=== PATIENT | male | born 1965 | race Caucasian/White ===

== ENCOUNTER 2019-07-10 08:03 | Inpatient (IN) | payer BC ==
--- NOTE | 2019-07-10 09:08 | RADIOLOGY REPORT (SQ) ---
EXAM DESCRIPTION: CHEST SINGLE VIEW COMPLETED DATE/TIME: 07/10/2019 8:57 am REASON FOR STUDY: sob COMPARISON: 04/18/2016 EXAM PARAMETERS: NUMBER OF VIEWS: One view. TECHNIQUE: Single frontal radiographic view of the chest acquired. RADIATION DOSE: NA LIMITATIONS: None. FINDINGS: LUNGS AND PLEURA: Chronic volume loss on the left. No evidence of pulmonary edema or pneu monia. MEDIASTINUM AND HILAR STRUCTURES: No masses. Contour normal. HEART AND VASCULAR STRUCTURES: Heart normal in size. Normal vasculature. BONES: No acute findings. HARDWARE: None in the chest. OTHER: No other significant finding. IMPRESSION: NO ACUTE RADIOGRAPHIC FINDING IN THE CHEST. TECHNICAL DOCUMENTATION: JOB ID: [id number] 2010 [employer]- All Rights Reserved Reading location - IP/workstation name: [email or web address]
--- NOTE | 2019-07-10 09:40 | ER Document Report ---
Entered by MUNA SAWYER SCRIBE 07/10/19 0849 Acting as scribe for:EWELINA PACE MD ED Respiratory Problem - General Mode of Arrival: Ambulatory Information source: Patient TRAVEL OUTSIDE OF THE [place] IN LAST 30 DAYS: No <EWELINA PACE - Last Filed: 07/10/19 17:08> <AJIT ALDANA - Last Filed: 07/10/19 22:06> - General Chief Complaint: Respiratory Distress Stated Complaint: TROUBLE BREATHING Time Seen by Provider: 07/10/19 08:39 Notes: This 53-year-old male patient presents to the emergency department today with complaints of a 3-week history of a cough. Patient has been seen by an urgent care multiple times over the past 3 weeks and was prescribed the following medications on the listed dates. 06/23/2019 Tamiflu 75 mg, benzonatate 200mg 06/27/2019 Proair inhaler, prednisone 20 mg, levofloxacin 750 mg 07/01/2019 doxycycline 100 mg Patient states on 06/22 he was diagnosed with influenza A. Patient went back 4 days later on 06/26 and was diagnosed with "double pneumonia". Patient states in the last 3 weeks he has had intermittent fevers but today he is afebrile. Patient denies any nasal congestion, sore throat, or recent travel outside this area. 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 EENT: denies: Nose congestion, Throat pain Cardiovascular: No symptoms reported Respiratory: See HPI, Cough, Short of breath Gastrointestinal: No symptoms reported Genitourinary: No symptoms reported Male Genitourinary: No symptoms reported Musculoskeletal: No symptoms reported Skin: No symptoms reported Hematologic/Lymphatic: No symptoms reported Neurological/Psychological: No symptoms reported -: Yes All other systems reviewed and negative <EWELINA PACE - Last Filed: 07/10/19 17:08> Physical Exam <EWELINA PACE - Last Filed: 07/10/19 17:08> - Vital signs Vitals: Resp BP Pulse Ox 31 H 136/90 H 100 07/10/19 08:09 07/10/19 08:09 07/10/19 08:09 - Notes Notes: Physical Exam: General: Alert, appears short of breath. HEENT: Normocephalic. Atraumatic. PERRL. Extraocular movements intact. Oropharynx clear. Neck: Supple. Non-tender. Respiratory: Hyperventilating, appears short of breath, there is faint wheezing and rhonchi bilaterally with forced cough. Cardiovascular: Regular rate and rhythm. Abdominal: Normal Inspection. Non-tender. No distension. Normal Bowel Sounds. Back: No gross abnormalities. Extremities: Moves all four extremities. Upper extremities: Normal inspection. Normal ROM. Lower extremities: Normal inspection. No edema. Normal ROM. Neurological: Normal cognition. AAOx4. Normal speech. Psychological: Normal affect. Normal Mood. Skin: Warm. Dry. Normal color. (EWELINA PACE) Course - Laboratory Result Diagrams: 07/10/19 09:36 07/10/19 15:57 - Diagnostic Test Radiology reviewed: Image reviewed, Reports reviewed - Chest x-ray does not show any acute findings. There is chronic volume loss on the left compared to previous chest x-rays. - EKG Interpretation by Co EKG shows normal: Sinus rhythm, [place], Intervals, QRS Complexes, ST-T Waves Rate: Normal - 68 Rhythm: NSR - Transfer of Care Care transferred to following provider: Dr. Aldana <EWELINA PACE - Last Filed: 07/10/19 17:08> - Laboratory Result Diagrams: 07/10/19 09:36 07/10/19 15:57 <AJIT ALDANA - Last Filed: 07/10/19 22:06> - Re-evaluation Re-evalutation: 07/10/19 16:39 The patient serum was extremely glycemic and the lab stated they were unable to run the test. They redrew him and it remained extremely lipemic and told me that her composing room supervisor told him they were not allowed to run the lab tests. I eventually spoke with 1 of the pathologists and got her to ask the lab personnel to run the tests that have been ordered so we might be able to eventually make a disposition on this patient. That is the reason why he has now been here for 8 hours and still does not have a disposition or diagnosis. (EWELINA PACE) 07/10/19 22:01 The patient has had respiratory like symptoms for about 3 weeks now. He apparently tested positive for Influenza and then was told he could have pneumonia. The patient has finished a course of Tamiflu, Levaquin, and Doxycycline and he is still sick. CT today shows a consolidation in his left lung base. Patient therefore admitted for further treatment and care. Meropenem started but COVID19 Testing also sent. Patient also has hypertriglyceridemia. ([facility]) - Vital Signs Vital signs: Temp Pulse Resp BP Pulse Ox 97.9 F 92 16 125/93 H 98 07/10/19 08:11 07/10/19 08:11 07/10/19 15:00 07/10/19 10:01 07/10/19 15:00 - Laboratory Laboratory results interpreted by me: 07/10/19 07/10/19 07/10/19 09:36 09:38 11:56 Plt Count 127 L VBG pH 7.43 H Sodium Glucose Triglycerides Cholesterol HDL Cholesterol Urine Glucose (UA) 50 H 07/10/19 15:57 Plt Count VBG pH Sodium 136.7 L Glucose 144 H Triglycerides 4013 H Cholesterol 233.17 H HDL Cholesterol 21 L Urine Glucose (UA) - Transfer of Care Notes: 07/10/19 17:11 Patient is pending CTA chest. (EWELINA PACE) Discharge <EWELINA PACE - Last Filed: 07/10/19 17:08> - Discharge Admitting Provider: Dixie (Hospitalist) Unit Admitted: Medical Floor <[facility] - Last Filed: 07/10/19 22:06> - Discharge Clinical Impression: Hypertriglyceridemia, Chronic cough Dyspnea Qualifiers: Dyspnea type: shortness of breath Qualified Code(s): R06.02 - Shortness of breath Condition: Stable Disposition: ADMITTED INPATIENT I personally performed the services described in the documentation, reviewed and edited the documentation which was dictated to the scribe in my presence, and it accurately records my words and actions.
[2019-07-10 09:58] LABS: ABSOLUTE BASOPHILS # (AUTO) 0.1 10^3/uL (0.0-0.2); ABSOLUTE LYMPHOCYTES (AUTO) 1.4 10^3/uL (0.5-4.7); ABSOLUTE MONOCYTES (AUTO) 0.5 10^3/uL (0.1-1.4); ABSOLUTE NEUT (AUTO) 4.7 10^3/uL (1.7-8.2); BASOPHILS % (AUTO) 1.1 % (0-2); EOSINOPHILS % (AUTO) 0.5 % (0-6); HEMATOCRIT 42.6 % (37.9-51.0); LYMPHOCYTES % (AUTO) 21.2 % (13-45); MEAN CORPUSCULAR VOLUME 87 fl (80-97); MONOCYTES % (AUTO) 8.1 % (3-13); PLATELET COUNT 127 10^3/uL (150-450); RED BLOOD COUNT 4.92 10^6/uL (4.35-5.55); RED CELL DISTRIBUTION WIDTH 13.8 % (11.5-14.0); SEGMENTED NEUTROPHILS % (AUTO) 69.1 % (42-78); TOTAL CELLS COUNTED % (AUTO) 100 %; WHITE BLOOD COUNT 6.8 10^3/uL (4.0-10.5)
[2019-07-10 10:01] LABS: VENOUS BLOOD BASE EXCESS -0.4 mmol/L; VENOUS BLOOD HCO3 23.2 mmol/L (20-32); VENOUS BLOOD PCO2 35.4 mmHg (35-63); VENOUS BLOOD PH 7.43 (7.30-7.42)
[2019-07-10 10:26] LABS: HEMOGLOBIN 14.3 g/dL (13.5-17.0); MEAN CORPUSCULAR HGB CONC 33.5 g/dL (32.0-36.0)
[2019-07-10 10:43] LABS: ERYTHROCYTE SEDIMENTATION RATE 14 mm/hr (0-20)
[2019-07-10] MEDS ORDERED: NORMAL SALINE 1000 ML 1,000 ML IV ONE (11:08)
[2019-07-10 12:12] LABS: APPEARANCE,URINE CLEAR; BILIRUBIN,URINE NEGATIVE (NEGATIVE); COLOR,URINE YELLOW; GLUCOSE, URINE 50 mg/dL (NEGATIVE); KETONES,URINE NEGATIVE (NEGATIVE); LEUKOCYTE ESTERASE,URINE NEGATIVE (NEGATIVE); NITRITE,URINE NEGATIVE (NEGATIVE); PROTEIN,URINE NEGATIVE (NEGATIVE); URINE SPECIFIC GRAVITY 1.019; UROBILINOGEN,URINE NEGATIVE mg/dL (<2.0)
[2019-07-10 12:30] LABS: A TYPE INFLUENZA AG NEGATIVE (NEGATIVE); B INFLUENZA AG NEGATIVE (NEGATIVE)
[2019-07-10] MEDS ORDERED: RINGERS SOLUTION,LACTATED 1,000 ML IV ONE ×2 (13:46→16:58)
--- NOTE | 2019-07-10 15:53 | EKG REPORT ---
SEVERITY:- NORMAL ECG - SINUS RHYTHM : Confirmed by: Rosalva Jane MD 10-Jul-2019 15:52:18
[2019-07-10 16:29] LABS: ALBUMIN 3.5 g/dL (3.5-5.0); ALKALINE PHOSPHATASE 82 U/L (38-126); ANION GAP 6 (5-19); ASPARTATE AMINO TRANSFERASE 25 U/L (17-59); BILIRUBIN,TOTAL 0.4 mg/dL (0.2-1.3); BLOOD UREA NITROGEN 15 mg/dL (7-20); CARBON DIOXIDE 25 mmol/L (22-30); CHLORIDE 106 mmol/L (98-107); CHOLESTEROL 233.17 mg/dL (0-200); CREATINE KINASE 77 U/L (55-170); GLUCOSE 144 mg/dL (75-110); POTASSIUM 4.5 mmol/L (3.6-5.0); TOTAL PROTEIN 6.5 g/dL (6.3-8.2)
[2019-07-10 16:43] LABS: NT PRO BNP < 11 pg/mL (<125)
[2019-07-10 16:44] LABS: TROPONIN I < 0.012 ng/mL
[2019-07-10 16:58] LABS: C-REACTIVE PROTEIN < 5.0 mg/L (<10.0)
[2019-07-10 16:59] LABS: CALCIUM 8.8 mg/dL (8.4-10.2); DIRECT LDL < 30 mg/dL (<100); TRIGLYCERIDES 4013 mg/dL (<150)
--- NOTE | 2019-07-10 18:44 | RADIOLOGY REPORT (SQ) ---
EXAM DESCRIPTION: CTA CHEST COMPLETED DATE/TIME: 07/10/2019 6:18 pm REASON FOR STUDY: Dyspnea, hypertriglyceridemia COMPARISON: None. TECHNIQUE: CT scan of the chest performed using helical scanning technique with dynamic intravenous contrast injection. Images reviewed with lung, soft tissue and bone windows. Reconstructed coronal and sagittal MPR images reviewed. Additional 3 dimensional post-processing performed to develop Maximal Intensity Projection images (NV P). All images stored on PACS. All CT scanners at this facility use dose modulation, iterative reconstruction, and/or weight based d osing when appropriate to reduce radiation dose to as low as reasonably achievable (ALARA). [facility]: Dose Right [facility]: CareDose [facility]: Dose Right [facility]: Teradose 4D [facility]: [employer] CONTRAST TYPE AND DOSE: contrast/concentration: Isovue 350.00 mg/ml; Total Contrast Delivered: 64.0 ml; Total Saline Delivered: 32.4 ml Contrast bolus adequate for pulmonary arteries and aorta. RENAL FUNCTION: BUN 15 creatinine 0.9 RADIATION DOSE: CT Rad equipment meets quality standard of care and radiation dose reduction techniq ues were employed. CTDIvol: 13.2 - 18.2 mGy. DLP: 735 mGy-cm. . LIMITATIONS: None. FINDINGS: LUNGS AND PLEURA: There is opacification in the left base. There are some air bronchogram s. AORTA AND GREAT VESSELS: No aneurysm. No dissection. HEART: No pericardial effusion. No significant coronary artery calcifications. PULMONARY ARTERIES: No emboli visualized in the main pulmonary arteries or the segmental branches. HILAR AND MEDIASTINAL STRUCTURES: No identified masses or abnormal nodes. HARDWARE: None in the chest. UPPER ABDOMEN: No significant findings. Limited exam. THYROID AND OTHER SOFT TISSUES: No masses. No adenopathy. BONES: No acute or significant finding. 3D MIPS: Confirm above findings. OTHER: No other significant finding. IMPRESSION: 1. Airspace disease in the left lower lobe, pneumonia versus atelectasis. 2. There is no aortic aneurysm or dissection. There is no pulmonary embolus. COMMENT: Quality ID # [id number]: Final reports with documentation of one or more dose reduction techniques (e.g., Automated exposure control, adjustment of the mA and/or kV according to patient size, use of iterative reconstruction technique) TECHNICAL DOCUMENTATION: JOB ID: [id number] 2010 [employer]- All Rights Reserved Reading location - IP/workstation name: [email or web address]
[2019-07-10] MEDS ORDERED: MEROPENEM 1 GM VIAL IV ONE (22:07)
[2019-07-10] MEDS ORDERED: ACETAMINOPHEN 325 MG TABLET PO PRN (22:43)
[2019-07-10] MEDS ORDERED: MAG HYDROX/AL HYDROX/SIMETH SUSP 30 ML UDCUP PO PRN (22:43)
[2019-07-10] MEDS ORDERED: MELATONIN 5 MG TABLET PO PRN (22:43)
[2019-07-10] MEDS ORDERED: GUAIFENESIN SYRP 200 MG/10 ML UDC PO PRN (22:43)
[2019-07-10] MEDS ORDERED: MAGNESIUM HYDROXIDE SUSP 30 ML UDCUP PO PRN (22:43)
[2019-07-10] MEDS: ACETYLCYSTEINE 20% SOLN 800 MG/4 ML VIAL.NEB NEB SCH (23:25)
[2019-07-11] MEDS: LEVALBUTEROL HCL NEB 0.63 MG/3 ML AMPUL NEB PRN ×3 (00:07→20:41)
--- NOTE | 2019-07-11 02:59 | PDOC H&P ---
History of Present Illness Admission Date/PCP: 07/10/2019 22:21 No local PCP Patient complains of: Dyspnea History of Present Illness: CHELLE DAWKINS is a 53 year old male who presents the emergency room with a 3- week history of dyspnea. He admits developing constant moderate dyspnea with an associated moderate nonproductive cough and an accompanying episodic subjective fever 3 weeks ago. He was seen on three occasions at a local urgent care center for this problem and was treated initially with Tamiflu having been diagnosed as having influenza A. He was subsequently seen on 2 separate occasions with a diagnosis of pneumonia and treated with Levaquin followed by a course of doxycy haddad when treatment with Levaquin failed. He continues to have dyspnea worsened by exertion, a cough now productive of thick yellow-green mucus and occasional subjective febrile episodes despite treatment, resulting in his emergency room visit today. He denies other associated or accompanying signs and symptoms. He denies prior similar episodes. He has not identified any additional aggravating or ameliorating factors for his dyspnea. In the emergency room he was found to be afebrile with a normal CBC but evidence of a left lower lobe pneumonia on his chest x-ray. He was subsequently admitted to the hospital for further evaluation and treatment. Past Medical History Cardiac Medical History: Reports: Hyperlipidema, Hypertension Denies: Atrial Fibrillation, Congestive Heart Failure, Coronary Artery Disease, DVT, Myocardial Infarction, Pulmonary Embolism Pulmonary Medical History: Denies: Asthma, Chronic Obstructive Pulmonary Disease (COPD) EENT Medical History: Denies: Cataracts, Ears - Hearing aids Neurological Medical History: Denies: Hemorrhagic CVA, Ischemic CVA, Seizures Endocrine Medical History: Denies: Diabetes Mellitus Type 1, Diabetes Mellitus Type 2, Hyperthyroidism, Hypothyroidism, Obesity Renal/ Medical History: Denies: Chronic Kidney Disease, Nephrolithiasis Malignancy Medical History: Reports: None GI Medical History: Reports: Gastroesophageal Reflux Disease Denies: Cirrhosis, Crohn's Disease, Hepatitis, Peptic Ulcer Disease, Ul cerative Colitis Musculoskeltal Medical History: Denies: Arthritis, Gout Skin Medical History: Denies: Eczema, Psoriasis Psychiatric Medical History: Denies: Alcohol Dependency, Substance Abuse, Tobacco Dependency Traumatic Medical History: Reports: None Hematology: Denies: Anemia, Bleeding Tendencies Infectious Medical History: Reports: None Past Surgical History Past Surgical History: Reports: None Social History Information Source: Patient Lives with: Spouse/Significant other Smoking Status: Never Smoker Electronic Cigarette use?: No Frequency of Alcohol Use: None Hx Recreational Drug Use: No Drugs: None Hx Prescription Drug Abuse: No - Advance Directive Resuscitation Status: Full Code Surrogate healthcare decision maker:: Ebony Smith Family History Family History: CAD, Hypertension. denies: DM, Malignancy Parental Family History Reviewed: Yes Children Family History Reviewed: No Sibling(s) Family History Reviewed.: Yes Medication/Allergy Home Medications: Aspirin [Aspirin 81 mg Chewable Tablet] 81 mg PO DAILY 07/03/13 Lisinopril [Zestril] 5 mg PO DAILY 07/03/13 Pantoprazole Sodium [Protonix] 40 mg PO DAILY 07/03/13 Ondansetron [Zofran Odt 4 mg Tablet] 1 - 2 tab PO Q4H #10 tab.rapdis 07/04/13 Famotidine [Pepcid 40 mg Tablet] 40 mg PO QAM #30 tablet 04/18/16 Allergies/Adverse Reactions: oxycodone HCl [From Percocet] Allergy (Severe, Verified 07/10/19 08:23) muscle spasms Review of Systems Constitutional: PRESENT: as per HPI, fever(s). ABSENT: anorexia, chills Eyes: ABSENT: visual disturbances, other - Eye pain Ears: ABSENT: hearing changes, other - Ear pain Nose, Mouth, and Throat: ABSENT: headache(s), sore throat Cardiovascular: PRESENT: as per HPI, dyspnea on exertion. ABSENT: chest pain Respiratory: PRESENT: as per HPI, cough, dyspnea, sputum Gastrointestinal: ABSENT: abdominal pain, constipation, diarrhea, nausea, vomiting Genitourinary: PRESENT: nocturia - 5 or 6 times a night since the onset of his illness. ABSENT: difficulty urinating, dysuria, hematuria Musculoskeletal: ABSENT: deformity, joint swelling Integumentary: ABSENT: pruritus, rash Neurological: ABSENT: confusion, convulsions, focal weakness, memory loss, syncope Psychiatric: ABSENT: anxiety, depression Endocrine: ABSENT: cold intolerance, heat intolerance, polydipsia, polyphagia, polyuria Hematologic/Lymphatic: ABSENT: easy bleeding, easy bruising Allergic/Immunologic: ABSENT: seasonal rhinorrhea Physical Exam Vital Signs: Temp Pulse Resp BP Pulse Ox 97.9 F 92 16 125/93 H 98 07/10/19 08:11 07/10/19 08:11 07/10/19 15:00 07/10/19 10:01 07/10/19 15:00 Intake & Output 07/08/19 07/09/19 07/10/19 23:59 23:59 23:59 Intake Total 3000 Balance 3000 Weight 87.997 kg General appearance: PRESENT: no acute distress, cooperative Head exam: PRESENT: atraumatic, normocephalic Eye exam: PRESENT: conjunctiva pink. ABSENT: conjunctival injection, scleral icterus Ear exam: PRESENT: normal external ear exam. ABSENT: bleeding, drainage Mouth exam: PRESENT: dry mucosa, neck supple Neck exam: ABSENT: thyromegaly, tracheal deviation Respiratory exam: PRESENT: rales - Coarse rales noted in the left posterior lower lung valadez, rhonchi - Coarse rhonchi noted in the left posterior lower lung valadez, symmetrical, unlabored Cardiovascular exam: PRESENT: RRR. ABSENT: clicks, gallop, rubs Pulses: PRESENT: normal radial pulses, normal dorsalis pedis pul Vascular exam: PRESENT: normal capillary refill. ABSENT: pallor GI/Abdominal exam: PRESENT: normal bowel sounds, soft Rectal exam: PRESENT: deferred Extremities exam: ABSENT: joint swelling, pedal edema Musculoskeletal exam: ABSENT: deformity, dislocation Neurological exam: PRESENT: alert, oriented to person, oriented to place, oriented to time, oriented to situation, CN II-XII grossly intact. ABSENT: motor sensory deficit Psychiatric exam: PRESENT: appropriate affect, normal mood Skin exam: PRESENT: dry, intact, warm. ABSENT: jaundice, rash, urticaria Results Laboratory Results: 07/10/19 09:36 07/10/19 15:57 07/10/19 07/10/19 07/10/19 09:36 09:36 09:38 WBC 6.8 RBC 4.92 Hgb 14.3 Hct 42.6 MCV 87 MCH 29.0 MCHC 33.5 RDW 13.8 Plt Count 127 L Seg Neutrophils % 69.1 VBG pH 7.43 H VBG pCO2 35.4 VBG HCO3 23.2 VBG Base Excess -0.4 Sodium Cancelled Potassium Cancelled Chloride Cancelled Carbon Dioxide Cancelled Anion Gap Cancelled BUN Cancelled Creatinine Cancelled Est GFR ( Amer) Cancelled Est GFR (Non-Af Amer) Cancelled Glucose Cancelled Calcium Cancelled Total Bilirubin Cancelled AST Cancelled Alkaline Phosphatase Cancelled C-Reactive Protein Cancelled Total Protein Cancelled Albumin Cancelled Triglycerides Cholesterol LDL Cholesterol Direct VLDL Cholesterol HDL Cholesterol Lipase Urine Color Urine Appearance Urine pH Ur Specific [place] Urine Protein Urine Glucose (UA) Urine Ketones Urine Blood Urine Nitrite Ur Leukocyte Esterase Urine WBC (Auto) 07/10/19 07/10/19 07/10/19 10:32 11:56 13:10 WBC RBC Hgb Hct MCV MCH MCHC RDW Plt Count Seg Neutrophils % VBG pH VBG pCO2 VBG HCO3 VBG Base Excess Sodium Cancelled Cancelled Potassium Cancelled Cancelled Chloride Cancelled Cancelled Carbon Dioxide Cancelled Cancelled Anion Gap Cancelled Cancelled BUN Cancelled Cancelled Creatinine Cancelled Cancelled Est GFR ( Amer) Cancelled Cancelled Est GFR (Non-Af Amer) Cancelled Cancelled Glucose Cancelled Cancelled Calcium Cancelled Cancelled Total Bilirubin Cancelled Cancelled AST Cancelled Cancelled Alkaline Phosphatase Cancelled Cancelled C-Reactive Protein Cancelled Cancelled Total Protein Cancelled Cancelled Albumin Cancelled Cancelled Triglycerides Cancelled Cholesterol Cancelled LDL Cholesterol Direct Cancelled VLDL Cholesterol Cancelled HDL Cholesterol Cancelled Lipase Cancelled Urine Color YELLOW Urine Appearance CLEAR Urine pH 5.0 Ur Specific [place] 1.019 Urine Protein NEGATIVE Urine Glucose (UA) 50 H Urine Ketones NEGATIVE Urine Blood NEGATIVE Urine Nitrite NEGATIVE Ur Leukocyte Esterase NEGATIVE Urine WBC (Auto) 1 07/10/19 15:57 WBC RBC Hgb Hct MCV MCH MCHC RDW Plt Count Seg Neutrophils % VBG pH VBG pCO2 VBG HCO3 VBG Base Excess Sodium 136.7 L Potassium 4.5 Chloride 106 Carbon Dioxide 25 Anion Gap 6 BUN 15 Creatinine 0.99 Est GFR ( Amer) > 60 Est GFR (Non-Af Amer) Glucose 144 H Calcium 8.8 Total Bilirubin 0.4 AST 25 Alkaline Phosphatase 82 C-Reactive Protein < 5.0 Total Protein 6.5 Albumin 3.5 Triglycerides 4013 H Cholesterol 233.17 H LDL Cholesterol Direct < 30 VLDL Cholesterol HDL Cholesterol 21 L Lipase 214.3 Urine Color Urine Appearance Urine pH Ur Specific [place] Urine Protein Urine Glucose (UA) Urine Ketones Urine Blood Urine Nitrite Ur Leukocyte Esterase Urine WBC (Auto) 07/10/19 07/10/19 07/10/19 09:36 09:36 10:32 Creatine Kinase Cancelled Cancelled CK-MB (CK-2) Cancelled Troponin I Cancelled NT-Pro-B Natriuret Pep Cancelled 07/10/19 07/10/19 07/10/19 10:32 13:10 13:10 Creatine Kinase Cancelled CK-MB (CK-2) Cancelled Cancelled Troponin I Cancelled Cancelled NT-Pro-B Natriuret Pep Cancelled Cancelled 07/10/19 07/10/19 15:57 15:57 Creatine Kinase 77 CK-MB (CK-2) 1.30 Troponin I < 0.012 NT-Pro-B Natriuret Pep < 11 Impressions: Chest X-Ray 07/10/19 08:15 IMPRESSION: NO ACUTE RADIOGRAPHIC FINDING IN THE CHEST. Chest/Abdomen CTA 07/10/19 17:08 IMPRESSION: 1. Airspace disease in the left lower lobe, pneumonia versus atelectasis. 2. There is no aortic aneurysm or dissection. There is no pulmonary embolus. Assessment and Plan - Diagnosis (1) Left lower lobe pneumonia Qualifiers: Pneumonia type: due to unspecified organism Qualified Code(s): J18.9 - Pneumonia, unspecified organism Is this a current diagnosis for this admission?: Yes (2) Hyponatremia Is this a current diagnosis for this admission?: Yes (3) Essential hypertension Is this a current diagnosis for this admission?: Yes (4) Hyperlipidemia Qualifiers: Hyperlipidemia type: mixed hyperlipidemia Qualified Code(s): E78.2 - Mixed hyperlipidemia Is this a current diagnosis for this admission?: Yes (5) Gastroesophageal reflux disease Qualifiers: Esophagitis presence: esophagitis presence not specified Qualified Code(s): K21.9 - Gastro-esophageal reflux disease without esophagitis Is this a current diagnosis for this admission?: Yes - Plan Summary Summary: Patient will be admitted to the medical floor where he will receive routine supportive and symptomatic cares. He has been screened for Covid-19 and results are pending. He will receive an aggressive pulmonary toilet utilizing Xopenex and Mucomyst. He will be treated with IV antibiotics utilizing meropenem initially. Blood cultures were obtained in the ER and are pending. Initiation of treatment for his hyperlipidemia with profound hypertriglyceridemia will be accomplished utilizing Lipitor. Patient's home medications will be continued as appropriate. CBCs, metabolic profiles and magnesium levels will be obtained as appropriate. Patient will be placed on a cardiac diet during his hospital stay. - Time Time Spent with patient: 15-24 minutes Medications reviewed and adjusted accordingly: Yes - Inpatient Certification Based on my medical assessment, after consideration of the patient's kenton rbidities, presenting symptoms, or acuity I expect that the services needed warrant INPATIENT care.: Yes I certify that my determination is in accordance with my understanding of Medicare's requirements for reasonable and necessary INPATIENT services [42 CFR 412.3e].: Yes Medical Necessity: Failure to Improve With Outpatient Therapy, Need Close Monitoring Due to Risk of Patient Decompensation, Need for Nebulizer Therapy and Monitoring of Response, Need for IV Antibiotics
[2019-07-11] MEDS ORDERED: MEROPENEM 1 GM VIAL ONE (05:21)
[2019-07-11] MEDS: MEROPENEM 1 GM in NORMAL SALINE 50 ML IV SCH ×3 (05:56→22:14)
[2019-07-11] MEDS ORDERED: MEROPENEM 1 GM VIAL IV PRN (06:00)
[2019-07-11] MEDS: HEPARIN SOD (PORCINE) 5,000 UNIT/ML 1 ML VIAL SUBCUT SCH ×3 (06:06→22:08)
[2019-07-11 07:45] LABS: HEMATOCRIT 39.5 % (37.9-51.0); MEAN CORPUSCULAR VOLUME 86 fl (80-97); RED BLOOD COUNT 4.57 10^6/uL (4.35-5.55); RED CELL DISTRIBUTION WIDTH 13.6 % (11.5-14.0); WHITE BLOOD COUNT 5.7 10^3/uL (4.0-10.5)
[2019-07-11 07:47] LABS: ANION GAP 9 (5-19); BLOOD UREA NITROGEN 13 mg/dL (7-20); CARBON DIOXIDE 26 mmol/L (22-30); CHLORIDE 103 mmol/L (98-107); GLUCOSE 120 mg/dL (75-110); POTASSIUM 4.2 mmol/L (3.6-5.0)
[2019-07-11 07:54] LABS: CALCIUM 8.5 mg/dL (8.4-10.2)
[2019-07-11 08:27] LABS: PLATELET COUNT 95 10^3/uL (150-450)
[2019-07-11] MEDS: ACETYLCYSTEINE 20% SOLN 800 MG/4 ML VIAL.NEB NEB SCH ×2 (08:28→20:41)
[2019-07-11 08:30] LABS: HEMOGLOBIN 13.2 g/dL (13.5-17.0); MEAN CORPUSCULAR HEMOGLOBIN 28.8 pg (27.0-33.4)
[2019-07-11 08:31] LABS: MEAN CORPUSCULAR HGB CONC 33.4 g/dL (32.0-36.0)
[2019-07-11] MEDS: DOCUSATE SODIUM 100 MG CAPSULE PO SCH ×2 (09:06→17:04)
--- NOTE | 2019-07-11 16:30 | PDOC PROGRESS REPORT ---
Subjective Progress Note for:: 07/11/19 Subjective:: Still coughing but is on room air. He is not that uncomfortable. Certainly not in distress. Reason For Visit: PNEUMONIA Physical Exam Vital Signs: Temp Pulse Resp BP Pulse Ox 98.1 F 64 17 132/66 H 96 07/11/19 11:45 07/11/19 14:00 07/11/19 11:45 07/11/19 11:45 07/11/19 11:45 Intake & Output 07/10/19 07/11/19 07/12/19 06:59 06:59 06:59 Intake Total 3270 767 Output Total 0 Balance 3270 767 Weight 90.9 kg 90.9 kg General appearance: PRESENT: no acute distress, cooperative, well-developed Head exam: PRESENT: atraumatic, normocephalic Respiratory exam: PRESENT: rhonchi - Right base, symmetrical, unlabored, other - Congested cough. ABSENT: clear to auscultation dee, rales, tachypnea, wheezes Cardiovascular exam: PRESENT: RRR, +S1, +S2 GI/Abdominal exam: PRESENT: normal bowel sounds, soft. ABSENT: distended, guarding, tenderness Rectal exam: PRESENT: deferred Gentrourinary exam: ABSENT: indwelling catheter Extremities exam: ABSENT: joint swelling, pedal edema Musculoskeletal exam: PRESENT: ambulatory, full ROM, normal inspection. ABSENT: deformity Neurological exam: PRESENT: alert, awake, oriented to person, oriented to place, oriented to time, oriented to situation, CN II-XII grossly intact. ABSENT: altered Psychiatric exam: PRESENT: appropriate affect. ABSENT: agitated, anxious Focused psych exam: ABSENT: delusional, restlessness Skin exam: PRESENT: dry, normal color, warm. ABSENT: rash Results Laboratory Results: 07/11/19 07:10 07/11/19 07:10 07/10/19 07/11/19 07/11/19 15:57 07:10 07:10 WBC 5.7 RBC 4.57 Hgb 13.2 L Hct 39.5 MCV 86 MCH 28.8 MCHC 33.4 RDW 13.6 Plt Count 95 L Sodium 136.7 L 137.6 Potassium 4.5 4.2 Chloride 106 103 Carbon Dioxide 25 26 Anion Gap 6 9 BUN 15 13 Creatinine 0.99 0.95 Est GFR ( Amer) > 60 > 60 Glucose 144 H 120 H Calcium 8.8 8.5 Total Bilirubin 0.4 AST 25 Alkaline Phosphatase 82 C-Reactive Protein < 5.0 Total Protein 6.5 Albumin 3.5 Triglycerides 4013 H Cholesterol 233.17 H LDL Cholesterol Direct < 30 HDL Cholesterol 21 L Lipase 214.3 07/10/19 07/10/19 07/10/19 09:36 09:36 10:32 Creatine Kinase Cancelled Cancelled CK-MB (CK-2) Cancelled Troponin I Cancelled NT-Pro-B Natriuret Pep Cancelled 07/10/19 07/10/19 07/10/19 10:32 13:10 13:10 Creatine Kinase Cancelled CK-MB (CK-2) Cancelled Cancelled Troponin I Cancelled Cancelled NT-Pro-B Natriuret Pep Cancelled Cancelled 07/10/19 07/10/19 15:57 15:57 Creatine Kinase 77 CK-MB (CK-2) 1.30 Troponin I < 0.012 NT-Pro-B Natriuret Pep < 11 Impressions: Chest X-Ray 07/10/19 08:15 IMPRESSION: NO ACUTE RADIOGRAPHIC FINDING IN THE CHEST. Chest/Abdomen CTA 07/10/19 17:08 IMPRESSION: 1. Airspace disease in the left lower lobe, pneumonia versus atelectasis. 2. There is no aortic aneurysm or dissection. There is no pulmonary embolus. Assessment and Plan - Diagnosis (1) Left lower lobe pneumonia Qualifiers: Pneumonia type: due to unspecified organism Qualified Code(s): J18.9 - Pneumonia, unspecified organism Is this a current diagnosis for this admission?: Yes Plan: 07/11/2019 The patient had failed courses of outpatient antibiotic therapy over the course of several weeks. It is possible that the antibiotics prescribed were undertreated or his infection only partly resolved. We will utilize IV antibiotic therapy with meropenem. (2) Hyponatremia Is this a current diagnosis for this admission?: Yes Plan: 07/11/2019 Serum sodium is just below the lower limit normal. I do not believe it is clinically significant at this time. We will continue to monitor with serial ch emistries. (3) Essential hypertension Is this a current diagnosis for this admission?: Yes Plan: 07/11/2019 Will monitor blood pressure. If necessary we will start antihypertensive medication. (4) Hypertriglyceridemia Is this a current diagnosis for this admission?: Yes Plan: 07/11/2019 The patient is aware of his extremely high triglyceride level. He had been put on medications in the past. He had tried statin therapy with resultant myalgia. He thinks he was on TriCor in the past. I told him I would not start a medication as it was unrelated to this hospitalization however I strongly encouraged him to establish with a primary care provider and treat his triglyceride level of over 4000. (5) Gastroesophageal reflux disease Qualifiers: Esophagitis presence: esophagitis presence not specified Qualified Code(s): K21.9 - Gastro-esophageal reflux disease without esophagitis Is this a current diagnosis for this admission?: Yes Plan: 07/11/2019 The patient is currently asymptomatic. No pharmacologic intervention at this time. - Plan Summary Summary: Patient will be admitted to the medical floor where he will receive routine supportive and symptomatic cares. He has been screened for Covid-19 and results are pending. He will receive an aggressive pulmonary toilet utilizing Xopenex and Mucomyst. He will be treated with IV antibiotics utilizing meropenem initially. Blood cultures were obtained in the ER and are pending. Initiation of treatment for his hyperlipidemia with profound hypertriglyceridemia will be accomplished utilizing Lipitor. Patient's home medications will be continued as appropriate. CBCs, metabolic profiles and magnesium levels will be obtained as appropriate. Patient will be placed on a cardiac diet during his hospital stay. - Time Time Spent with patient: 15-24 minutes Medications reviewed and adjusted accordingly: Yes Anticipated discharge: Home
[2019-07-12] MEDS: HEPARIN SOD (PORCINE) 5,000 UNIT/ML 1 ML VIAL SUBCUT SCH ×2 (05:24→13:42)
[2019-07-12] MEDS: MEROPENEM 1 GM in NORMAL SALINE 50 ML IV SCH ×2 (05:27→18:39)
[2019-07-12] MEDS: ACETYLCYSTEINE 20% SOLN 800 MG/4 ML VIAL.NEB NEB SCH (08:38)
[2019-07-12] MEDS: LEVALBUTEROL HCL NEB 0.63 MG/3 ML AMPUL NEB PRN (08:38)
[2019-07-12] MEDS: DOCUSATE SODIUM 100 MG CAPSULE PO SCH (10:23)
--- NOTE | 2019-07-12 14:32 | PDOC DISCHARGE SUMMARY ---
Impression - Admit/DC Date/PCP Admission Date/Primary Care Provider: 07/10/19 22:25 Discharge Date: 07/12/19 - Assessment Summary: Patient will be admitted to the medical floor where he will receive routine supportive and symptomatic cares. He has been screened for Covid-19 and results are pending. He will receive an aggressive pulmonary toilet utilizing Xopenex and Mucomyst. He will be treated with IV antibiotics utilizing meropenem initially. Blood cultures were obtained in the ER and are pending. Initiation of treatment for his hyperlipidemia with profound hypertriglyceridemia will be accomplished utilizing Lipitor. Patient's home medications will be continued as appropriate. CBCs, metabolic profiles and magnesium levels will be obtained as appropriate. Patient will be placed on a cardiac diet during his hospital stay. - Additional Information Resuscitation Status: Full Code Discharge Diet: Cardiac Discharge Activity: Activity As Tolerated Referrals: [facility] [Outside] (PATIENT TO BE FOLLOWED BY HEALTH DEPT. ON SELF QUARANTINE AT HOME. ONCE THE HEALTH DEPT. RELEASES PATIENT THEN PATIENT MAY SCHEDULE A FOLLOW UP APPT. WITH PCP.) Prescriptions: Fluticasone Propion/Salmeterol [Advair HFA 115-21 mcg Inhaler] 2 puff IH BID #1 mdi Albuterol Sulfate [Albuterol Sulfate Hfa] 2 puff IH Q6 PRN #1 [email or web address] PRN Reason: Shortness Of Breath Doxycycline Monohydrate 100 mg PO BID 10 Days #20 capsule Cefpodoxime Proxetil [Vantin 200 Mg Tablet] 200 mg PO BID 10 Days #20 tablet Home Medications: Albuterol Sulfate [Albuterol Sulfate Hfa] 2 puff IH Q6 PRN #1 hfa.aer.[email or web address] 07/12/19 Cefpodoxime Proxetil [Vantin 200 Mg Tablet] 200 mg PO BID 10 Days #20 tablet 07/12/19 Doxycycline Monohydrate 100 mg PO BID 10 Days #20 capsule 07/12/19 Fluticasone Propion/Salmeterol [Advair HFA 115-21 mcg Inhaler] 2 puff IH BID #1 mdi 07/12/19 History of Present Illiness History of Present Illness: CHELLE DAWKINS is a 53 year old male who presents the emergency room with a 3- week history of dyspnea. He admits developing constant moderate dyspnea with an associated moderate nonproductive cough and an accompanying episodic subjective fever 3 weeks ago. He was seen on three occasions at a local urgent care center for this problem and was treated initially with Tamiflu having been diagnosed as having influenza A. He was subsequently seen on 2 separate occasions with a diagnosis of pneumonia and treated with Levaquin followed by a course of doxycycline when treatment with Levaquin failed. He continues to have dyspnea worsened by exertion, a cough now productive of thick yellow-green mucus and occasional subjective febrile episodes despite treatment, resulting in his emergency room visit today. He denies other associated or accompanying signs and symptoms. He denies prior similar episodes. He has not identified any additional aggravating or ameliorating factors for his dyspnea. In the emergency room he was found to be afebrile with a normal CBC but evidence of a left lower lobe pneumonia on his chest x-ray. He was subsequently admitted to the hospital for further evaluation and treatment. Hospital Course Hospital Course: The patient had an unremarkable hospital course. He was quickly transitioned to room air. His cough improved. He was never febrile. He feels well today and is stable for discharge home. Physical Exam Vital Signs: Temp Pulse Resp BP Pulse Ox 97.4 F 70 18 135/78 H 96 07/12/19 13:06 07/12/19 13:06 07/12/19 13:06 07/12/19 13:06 07/12/19 13:06 Intake & Output 07/11/19 07/12/19 07/13/19 06:59 06:59 06:59 Intake Total 3270 1998 Output Total 0 Balance 3270 1998 Weight 90.9 kg 89.5 kg General appearance: PRESENT: no acute distress, cooperative, well-developed Head exam: PRESENT: atraumatic, normocephalic Eye exam: PRESENT: conjunctiva pink. ABSENT: scleral icterus Ear exam: PRESENT: normal external ear exam. ABSENT: bleeding, drainage Mouth exam: PRESENT: moist, tongue midline Respiratory exam: PRESENT: clear to auscultation dee, symmetrical, unlabored. ABSENT: accessory muscle use, prolonged expiratory phas, rales, rhonchi, tachypnea, wheezes Cardiovascular exam: PRESENT: RRR, +S1, +S2. ABSENT: diastolic murmur, systolic murmur GI/Abdominal exam: PRESENT: normal bowel sounds, soft. ABSENT: distended, guarding, tenderness Rectal exam: PRESENT: deferred Gentrourinary exam: ABSENT: indwelling catheter Extremities exam: ABSENT: pedal edema Musculoskeletal exam: PRESENT: ambulatory, full ROM, normal inspection. ABSENT: deformity Neurological exam: PRESENT: alert, awake, oriented to person, oriented to place, oriented to time, oriented to situation, CN II-XII grossly intact. ABSENT: altered, motor sensory deficit Psychiatric exam: PRESENT: appropriate affect, normal mood. ABSENT: agitated, anxious Focused psych exam: ABSENT: delusional, paranoid, restlessness Skin exam: PRESENT: dry, normal color, warm. ABSENT: rash Results Laboratory Results: WBC 5.7 10^3/uL (4.0-10.5) 07/11/19 07:10 RBC 4.57 10^6/uL (4.35-5.55) 07/11/19 07:10 Hgb 13.2 g/dL (13.5-17.0) L 07/11/19 07:10 Hct 39.5 % (37.9-51.0) 07/11/19 07:10 MCV 86 fl (80-97) 07/11/19 07:10 MCH 28.8 pg (27.0-33.4) 07/11/19 07:10 MCHC 33.4 g/dL (32.0-36.0) 07/11/19 07:10 RDW 13.6 % (11.5-14.0) 07/11/19 07:10 Plt Count 95 10^3/uL (150-450) L 07/11/19 07:10 Lymph % (Auto) 21.2 % (13-45) 07/10/19 09:36 [place] % (Auto) 8.1 % (3-13) 07/10/19 09:36 Eos % (Auto) 0.5 % (0-6) 07/10/19 09:36 Baso % (Auto) 1.1 % (0-2) 07/10/19 09:36 Absolute Neuts (auto) 4.7 10^3/uL (1.7-8.2) 07/10/19 09:36 Absolute Lymphs (auto) 1.4 10^3/uL (0.5-4.7) 07/10/19 09:36 Absolute Monos (auto) 0.5 10^3/uL (0.1-1.4) 07/10/19 09:36 Absolute Eos (auto) 0.0 10^3/uL (0.0-0.6) 07/10/19 09:36 Absolute Basos (auto) 0.1 10^3/uL (0.0-0.2) 07/10/19 09:36 Seg Neutrophils % 69.1 % (42-78) 07/10/19 09:36 ESR 14 mm/hr (0-20) 07/10/19 09:36 D-Dimer Cancelled 07/10/19 13:10 VBG pH 7.43 (7.30-7.42) H 07/10/19 09:38 VBG pCO2 35.4 mmHg (35-63) 07/10/19 09:38 VBG HCO3 23.2 mmol/L (20-32) 07/10/19 09:38 VBG Base Excess -0.4 mmol/L 07/10/19 09:38 Sodium 137.6 mmol/L (137-145) 07/11/19 07:10 Potassium 4.2 mmol/L (3.6-5.0) 07/11/19 07:10 Chloride 103 mmol/L (98-107) 07/11/19 07:10 Carbon Dioxide 26 mmol/L (22-30) 07/11/19 07:10 Anion Gap 9 (5-19) 07/11/19 07:10 BUN 13 mg/dL (7-20) 07/11/19 07:10 Creatinine 0.95 mg/dL (0.52-1.25) 07/11/19 07:10 Est GFR ( Amer) > 60 (>60) 07/11/19 07:10 Est GFR (Non-Af Amer) Cancelled 07/10/19 13:10 Est GFR (MDRD) Non-Af > 60 (>60) 07/11/19 07:10 Glucose 120 mg/dL (75-110) H 07/11/19 07:10 Hemoglobin A1c % 6.2 % (4.7-6.0) H 07/11/19 07:10 Calcium 8.5 mg/dL (8.4-10.2) 07/11/19 07:10 Total Bilirubin 0.4 mg/dL (0.2-1.3) 07/10/19 15:57 Direct Bilirubin 0.0 mg/dL (0.0-0.4) 07/10/19 15:57 Neonat Total Bilirubin Not Reportable 07/10/19 15:57 Neonat Direct Bilirubin Not Reportable 07/10/19 15:57 Neonat Indirect Bili Not Reportable 07/10/19 15:57 AST 25 U/L (17-59) 07/10/19 15:57 ALT 34 U/L (<50) 07/10/19 15:57 Alkaline Phosphatase 82 U/L (38-126) 07/10/19 15:57 Creatine Kinase 77 U/L (55-170) 07/10/19 15:57 CK-MB (CK-2) 1.30 ng/mL (<4.55) 07/10/19 15:57 Troponin I < 0.012 ng/mL 07/10/19 15:57 C-Reactive Protein < 5.0 mg/L (<10.0) 07/10/19 15:57 NT-Pro-B Natriuret Pep < 11 pg/mL (<125) 07/10/19 15:57 Total Protein 6.5 g/dL (6.3-8.2) 07/10/19 15:57 Albumin 3.5 g/dL (3.5-5.0) 07/10/19 15:57 Triglycerides 4013 mg/dL (<150) H 07/10/19 15:57 Cholesterol 233.17 mg/dL (0-200) H 07/10/19 15:57 LDL Cholesterol Direct < 30 mg/dL (<100) 07/10/19 15:57 VLDL Cholesterol Cancelled 07/10/19 13:10 VLDL Cholesterol, Calc UNABLE TO CALCULATE 07/10/19 15:57 HDL Cholesterol 21 mg/dL (>40) L 07/10/19 15:57 Lipase 214.3 U/L (23-300) 07/10/19 15:57 EGFR Cancelled 07/10/19 13:10 Urine Color YELLOW 07/10/19 11:56 Urine Appearance CLEAR 07/10/19 11:56 Urine pH 5.0 (5.0-9.0) 07/10/19 11:56 Ur Specific [place] 1.019 07/10/19 11:56 Urine Protein NEGATIVE mg/dL (NEGATIVE) 07/10/19 11:56 Urine Glucose (UA) 50 mg/dL (NEGATIVE) H 07/10/19 11:56 Urine Ketones NEGATIVE mg/dL (NEGATIVE) 07/10/19 11:56 Urine Blood NEGATIVE (NEGATIVE) 07/10/19 11:56 Urine Nitrite NEGATIVE (NEGATIVE) 07/10/19 11:56 Urine Bilirubin NEGATIVE (NEGATIVE) 07/10/19 11:56 Urine Urobilinogen NEGATIVE mg/dL (<2.0) 07/10/19 11:56 Ur Leukocyte Esterase NEGATIVE (NEGATIVE) 07/10/19 11:56 Urine WBC (Auto) 1 /HPF 07/10/19 11:56 Urine Mucus (Auto) RARE /LPF 07/10/19 11:56 Urine Ascorbic Acid NEGATIVE (NEGATIVE) 07/10/19 11:56 Influenza A (Rapid) NEGATIVE (NEGATIVE) 07/10/19 12:05 Influenza B (Rapid) NEGATIVE (NEGATIVE) 07/10/19 12:05 07/10/19 07/10/19 07/10/19 09:36 10:32 13:10 CK-MB (CK-2) Cancelled Cancelled Cancelled Troponin I Cancelled Cancelled Cancelled NT-Pro-B Natriuret Pep Cancelled Cancelled Cancelled 07/10/19 15:57 CK-MB (CK-2) 1.30 Troponin I < 0.012 NT-Pro-B Natriuret Pep < 11 Impressions: Chest X-Ray 07/10/19 08:15 IMPRESSION: NO ACUTE RADIOGRAPHIC FINDING IN THE CHEST. Chest/Abdomen CTA 07/10/19 17:08 IMPRESSION: 1. Airspace disease in the left lower lobe, pneumonia versus atelectasis. 2. There is no aortic aneurysm or dissection. There is no pulmonary embolus. Plan Health Concerns: The patient will remain on home quarantine until he gets his results from the Department of Health. Plan of Treatment: The patient will complete his antibiotic therapy. He will be able to return to work once cleared by the Department of Health or when the appropriate quarantine is over. Goals: Complete resolution of his pneumonia Time Spent: Greater than 30 Minutes Stroke Is this a Stroke Patient?: No Acute Heart Failure - Is this a Heart Failure Patient?: No
[2019-07-12 14:52] VITALS: BP 132/87
== END 2019-07-12 15:30 | disposition home or self-care (01) | DRG 194 ==
LOC: ER 08:03 → EH 22:25 → 5 07-11
PROVIDERS: ADMIT Emergency Medicine; ATTEND Hospitalist
DX: J18.9 Pneumonia, unspecified organism (principal); E87.1 Hypo-osmolality and hyponatremia; I10 Essential (primary) hypertension; K21.9 Gastro-esophageal reflux disease without esophagitis; E78.2 Mixed hyperlipidemia; E78.1 Pure hyperglyceridemia; E78.00 Pure hypercholesterolemia, unspecified; Z79.899 Other long term (current) drug therapy; Z79.82 Long term (current) use of aspirin; Z88.6 Allergy status to analgesic agent
CPT/HCPCS: 36415; 71045; 71275; 80048; 80053; 80061; 81001; 82550; 82553; 82803; 83036; 83690; 83880; 84484; 85025; 85027; 85652; 86140; 87040; 87635; 87804; 93005; 93010; 94640; 96360; 96361; 99285; J2185; J3490; J7030; J7120; J7614

== ENCOUNTER → 2019-08-04 | Outpatient (CLI) | payer BC ==
--- NOTE | 2019-08-04 10:29 | RADIOLOGY REPORT (SQ) ---
EXAM DESCRIPTION: CT CHEST WITHOUT IMAGES COMPLETED DATE/TIME: 08/04/2019 10:13 am REASON FOR STUDY: PNEUMONIA, UNSPECIFIED ORGANISM J18.9 PNEUMONIA, UNSPECIFIED ORGANISM COMPARISON: 07/10/2019 TECHNIQUE: CT scan performed of the chest without intravenous contrast. Images reviewed with lung, soft tissue and bone windows. Reconstructed coronal and sagittal MPR images reviewed. All images st ored on PACS. All CT scanners at this facility use dose modulation, iterative reconstruction, and/or weight based d osing when appropriate to reduce radiation dose to as low as reasonably achievable (ALARA). [facility]: Dose Right [facility]: CareDose [facility]: Dose Right [facility]: Teradose 4D [facility]: Smart [employer] RADIATION DOSE: CT Rad equipment meets quality standard of care and radiation dose reduction techniq ues were employed. CTDIvol: 12.2 mGy. DLP: 505 mGy-cm. mGy. LIMITATIONS: No technical limitations. FINDINGS: LUNGS AND PLEURA: Chronic elevation left hemidiaphragm with adjacent scar/ atelectasis in the left lower lobe. No change compared to prior. Lungs otherwise clear. No pleural disease. HILAR AND MEDIASTINAL STRUCTURES: No identified masses or abnormal nodes. No obvious aneurysm. HEART AND VASCULAR STRUCTURES: Mild -moderate coronary calcification. No pericardial effusion. No a ortic aneurysm. UPPER ABDOMEN: No significant findings. Limited exam. THYROID AND OTHER SOFT TISSUES: No masses. No adenopathy. BONES: No significant finding. HARDWARE: None in the chest. OTHER: No other significant findings. IMPRESSION: NO SIGNIFICANT FINDING ON NON-CONTRASTED CHEST CT. TECHNICAL DOCUMENTATION: JOB ID: [id number] Quality ID # [id number]: Final reports with documentation of one or more dose reduction techniques (e.g., Au tomated exposure control, adjustment of the mA and/or kV according to patient size, use of iterative reconstruction technique) 2010 [employer]- All Rights Reserved Reading location - IP/workstation name: [email or web address]
== END ==
LOC: RAD 09:44
PROVIDERS: ATTEND Physician Assistant
DX: J18.9 Pneumonia, unspecified organism (principal)
CPT/HCPCS: 71250

== ENCOUNTER 2019-09-09 23:38 | Observation (INO) | payer BC ==
[2019-09-09] MEDS ORDERED: ASPIRIN 81 MG TABLET, CHEWABLE PO ONE (23:41)
--- NOTE | 2019-09-09 23:48 | ER Document Report ---
ED Medical Screen (RME) - General Chief Complaint: Chest Pain Stated Complaint: BACK/CHEST PAIN Time Seen by Provider: 09/09/19 23:41 Primary Care Provider: VENUS FISHMAN PA-C [Primary Care Provider] - Follow up as needed Mode of Arrival: Wheelchair Information source: Patient Notes: 54-year-old male presented to ED for complaint of severe left-sided chest pain g oing down the left arm to the left back. He states it started this morning is been taken Tylenol Motrin all day and not getting any better. He states that he got up to try to come into work and the pain is much worse. He is alert oriented short of breath due to the pain. Patient is not diaphoretic at this time. He states he does not have any history of heart attack he does have history of pneumonia. I have greeted and performed a rapid initial assessment of this patient. A comprehensive ED assessment and evaluation of the patient, analysis of test results and completion of medical decision making process will be conducted by an additional ED providers. TRAVEL OUTSIDE OF THE [place] IN LAST 30 DAYS: No - Related Data Allergies/Adverse Reactions: oxycodone HCl [From Percocet] Allergy (Severe, Verified 07/10/19 08:23) muscle spasms Past Medical History - Past Medical History Cardiac Medical History: Reports: Hx Hypercholesterolemia, Hx Hypertension Denies: Hx Atrial Fibrillation, Hx Congestive Heart Failure, Hx Coronary Artery Disease, Hx DVT, Hx Heart Attack, Hx Pulmonary Embolism Pulmonary Medical History: Denies: Hx Asthma, Hx COPD Neurological Medical History: Denies: Hx Seizures Endocrine Medical History: Denies: Hx Diabetes Mellitus Type 1, Hx Diabetes Mellitus Type 2, Hx Hyperthyroidism, Hx Hypothyroidism GI Medical History: Reports: Hx Gastroesophageal Reflux Disease. Denies: Hx Cirrhosis, Hx Crohn's Disease, Hx Hepatitis, Hx Ulcerative Colitis Musculoskeltal Medical History: Denies Hx Arthritis, Denies Hx Gout Skin Medical History: Denies Hx Eczema, Denies Hx Psoriasis Infectious Medical History: Denies: Hx Hepatitis - Immunizations Hx Diphtheria, Pertussis, Tetanus Vaccination: Yes Doctor's Discharge - Discharge Referrals: VENUS FISHMAN PA-C [Primary Care Provider] - Follow up as needed
[2019-09-10 00:20] LABS: ABSOLUTE EOSINOPHILS # (AUTO) 0.1 10^3/uL (0.0-0.6); ABSOLUTE LYMPHOCYTES (AUTO) 1.6 10^3/uL (0.5-4.7); ABSOLUTE MONOCYTES (AUTO) 0.4 10^3/uL (0.1-1.4); ABSOLUTE NEUT (AUTO) 2.5 10^3/uL (1.7-8.2); BASOPHILS % (AUTO) 0.9 % (0-2); EOSINOPHILS % (AUTO) 1.3 % (0-6); HEMATOCRIT 42.7 % (37.9-51.0); HEMOGLOBIN 15.4 g/dL (13.5-17.0); LYMPHOCYTES % (AUTO) 34.1 % (13-45); MEAN CORPUSCULAR HEMOGLOBIN 30.8 pg (27.0-33.4); MEAN CORPUSCULAR VOLUME 85 fl (80-97); MONOCYTES % (AUTO) 7.9 % (3-13); PLATELET COUNT 137 10^3/uL (150-450); RED CELL DISTRIBUTION WIDTH 14.3 % (11.5-14.0); SEGMENTED NEUTROPHILS % (AUTO) 55.8 % (42-78); TOTAL CELLS COUNTED % (AUTO) 100 %; WHITE BLOOD COUNT 4.6 10^3/uL (4.0-10.5)
[2019-09-10] MEDS ORDERED: FENTANYL CITRATE INJ/PF 100 MCG/2 ML AMPUL IV ONE ×2 (00:28→04:05)
[2019-09-10] MEDS ORDERED: NORMAL SALINE 1000 ML 1,000 ML IV ONE (00:31)
[2019-09-10] MEDS ORDERED: ONDANSETRON HCL INJ/PF 4 MG/2 ML SDV IV ONE (00:31)
--- NOTE | 2019-09-10 00:36 | ER Document Report ---
ED General - General Chief Complaint: Chest Pain Stated Complaint: BACK/CHEST PAIN Time Seen by Provider: 09/09/19 23:41 Primary Care Provider: VENUS FISHMAN PA-C [Primary Care Provider] - Follow up as needed Mode of Arrival: Wheelchair TRAVEL OUTSIDE OF THE [place] IN LAST 30 DAYS: No - HPI Patient complains to provider of: chest and back pain Onset: This morning Onset/Duration: Sudden, Constant Severity: Severe Context: 54-year-old male presents complaining of left-sided chest pain and midline upper back pain along with some left upper extremity pain that started approximately 12 hours prior to presentation. Patient denies diaphoresis with this. Patient states he did have some nausea during 1 of the episodes of pain. Patient describes the pain as a "knife" right into the middle of his back. Pain is worse with movement. Patient tried [id number] remedies at home today without relief of symptoms. Patient denies smoking. Patient states the pain radiates up into the posterior neck from the patient's back. Pt states he also noticed left upper extremity discomfort associated with the chest and back pain. Patient denies photophobia. Patient denies prior history of [place], ACS. - Related Data Allergies/Adverse Reactions: oxycodone HCl [From Percocet] Allergy (Severe, Verified 09/10/19 00:15) muscle spasms Home Medications: HIGH LIPIDS Past Medical History - General Information source: Patient - Social History Smoking Status: Never Smoker Frequency of alcohol use: None Drug Abuse: None Family History: CAD, Hypertension. denies: DM, Malignancy Patient has homicidal ideation: No - Past Medical History Cardiac Medical History: Reports: Hx Hypercholesterolemia, Hx Hypertension Denies: Hx Atrial Fibrillation, Hx Congestive Heart Failure, Hx Coronary Artery Disease, Hx DVT, Hx Heart Attack, Hx Pulmonary Embolism Pulmonary Medical History: Denies: Hx Asthma, Hx COPD Neurological Medical History: Denies: Hx Seizures Endocrine Medical History: Denies: Hx Diabetes Mellitus Type 1, Hx Diabetes Mellitus Type 2, Hx Hyperthyroidism, Hx Hypothyroidism GI Medical History: Reports: Hx Gastroesophageal Reflux Disease. Denies: Hx Cirrhosis, Hx Crohn's Disease, Hx Hepatitis, Hx Ulcerative Colitis Musculoskeletal Medical History: Denies Hx Arthritis, Denies Hx Gout Skin Medical History: Denies Hx Eczema, Denies Hx Psoriasis Infectious Medical History: Denies: Hx Hepatitis - Immunizations Hx Diphtheria, Pertussis, Tetanus Vaccination: Yes Review of Systems - Review of Systems Constitutional: No symptoms reported EENT: No symptoms reported Cardiovascular: Chest pain Respiratory: No symptoms reported Gastrointestinal: Nausea Genitourinary: No symptoms reported Male Genitourinary: No symptoms reported Musculoskeletal: Back pain, Neck pain, Other - Left arm pain Skin: No symptoms reported Hematologic/Lymphatic: No symptoms reported Neurological/Psychological: No symptoms reported -: Yes All other systems reviewed and negative Physical Exam - Vital signs Vitals: Pulse Ox 98 09/09/19 23:41 - Notes Notes: CONSTITUTIONAL [Vital signs reviewed, Patient appears uncomfortable, Alert and oriented X 3, Normal stature.] HEAD [Atraumatic, Normocephalic.] EYES [Eyes are normal to inspection, No discharge from eyes, Extraocular muscles intact, Sclera are normal, Conjunctiva are normal.] ENT [Ears normal to inspection, Nose examination normal, Mouth normal to inspection.] NECK [Normal ROM, No jugular venous distention, No meningeal signs, no carotid bruit.] RESPIRATORY CHEST [Chest is nontender, Breath sounds normal, No respiratory distress.] CARDIOVASCULAR [RRR, No murmurs, Normal S1 S2, No rub, No gallop.] ABDOMEN [Abdomen is nontender, No pulsatile masses, No other masses, Bowel sounds normal, No distension, No peritoneal signs, No hernias.] BACK [There is no CVA Tenderness, There is no tenderness to palpation, Normal inspection.] UPPER EXTREMITY [Inspection normal, No cyanosis, No clubbing, No edema, 2+ radial pulses.] LOWER EXTREMITY [Inspection normal, No cyanosis, No clubbing, No edema, No calf tenderness, 2+ femoral pulses.] NEURO [No focal motor deficits, No focal sensory deficits, Speech normal.] SKIN [Skin is warm, Skin is dry, Skin is normal color.] LYMPHATIC [No adenopathy in neck.] PSYCHIATRIC [Normal affect. ] Course - Re-evaluation Re-evalutation: 09/10/19 04:08 Results of ED MSE discussed with patient. Given the patient's age and hyperlipidemia along with the characteristics of his chest pain, this MD recommended that the patient be admitted for a chest pain rule out and have a stress test done. The patient agreed to be admitted for this. All questions were answered. - Vital Signs Vital signs: Temp Pulse Resp BP Pulse Ox 97.3 F 65 21 H 124/82 97 09/10/19 00:13 09/09/19 23:47 09/10/19 02:30 09/10/19 02:30 09/10/19 02:30 - Laboratory Result Diagrams: 09/10/19 00:07 09/10/19 00:30 Laboratory results interpreted by me: 09/10/19 09/10/19 00:07 00:30 RDW 14.3 H Plt Count 137 L Sodium 135.6 L Carbon Dioxide 21 L BUN 24 H Glucose 173 H - Diagnostic Test Radiology reviewed: Reports reviewed - EKG Interpretation by Me Additional EKG results interpreted by me: 09/10/19 00:40 EKG obtained on 09/09/2019 at 2344 hrs. was interpreted by this MD. Findings n ormal sinus rhythm, rate 65, normal axis, P waves preceding QRS complexes, QRS complexes appear narrow, there are no obvious patterns of ST segment elevation or depression seen to suggest acute myocardial ischemia or infarction. Impression normal sinus rhythm with nonspecific ST segments. 09/10/19 04:07 Repeat EKG obtained on 09/10/2019 at 0347 hrs. was interpreted by this MD. Findings: Sinus bradycardia, rate 51, normal axis, P waves proceed QRS complexes, QRS complexes narrow, there are no obvious patterns of ST segment elevation or depression present to suggest acute myocardial ischemia or infarction. Impression: Sinus bradycardia with nonspecific ST segments. - Consults Dr. Orona Time consulted: 04:05 - Dr. Orona agreed to admit the patient to a telemetry bed for observation status. Reason for consultation: 09/10/19 04:10 Chest pain Consulted provider: will see as inpatient Discharge - Discharge Clinical Impression: Chest pain Qualifiers: Chest pain type: unspecified Qualified Code(s): R07.9 - Chest pain, unspecified Condition: Good Disposition: ADMITTED OBSERVATION Admitting Provider: Yeyo (Hospitalist) Unit Admitted: Telemetry Referrals: VENUS FISHMAN PA-C [Primary Care Provider] - Follow up as needed
[2019-09-10 01:08] LABS: ALKALINE PHOSPHATASE 65 U/L (38-126); ANION GAP 8 (5-19); ASPARTATE AMINO TRANSFERASE 25 U/L (17-59); BILIRUBIN,TOTAL 0.4 mg/dL (0.2-1.3); BLOOD UREA NITROGEN 24 mg/dL (7-20); CALCIUM 9.1 mg/dL (8.4-10.2); CARBON DIOXIDE 21 mmol/L (22-30); CHLORIDE 107 mmol/L (98-107); GLUCOSE 173 mg/dL (75-110); POTASSIUM 4.3 mmol/L (3.6-5.0); TOTAL PROTEIN 6.8 g/dL (6.3-8.2)
--- NOTE | 2019-09-10 01:29 | RADIOLOGY REPORT (SQ) ---
CHEST 1 VIEW on 09/10/2019 at 12:51 AM CLINICAL INDICATION: Chest pain, back pain COMPARISON: 07/10/2019 FINDINGS: There is minimal left basilar atelectasis and/or scarring. The lungs are otherwise clear. Cardiac, hilar and mediastinal contours are within normal limits. Pulmonary vascularity is within normal limits. IMPRESSION: No acute disease.
--- NOTE | 2019-09-10 03:03 | RADIOLOGY REPORT (SQ) ---
EXAM DESCRIPTION: CT ABDOMEN PELVIS WITHOUT THEN WITH IV CONTRAST, CT CHEST ANGIOGRAPHY WITHOUT THEN WITH IV CONTRAST COMPLETED DATE/TME: 09/10/2019 01:13 CLINICAL HISTORY: 54 years Male, chest and back pain. concern for dissection pe. creat 1.05 Comparison: CR, same day. Technique: IV contrast. Coronal and sagittal reformat. 3d reconstruction. This exam was performed according to our departmental dose-optimization program, which includes automated exposure control, adjustment of the mA and/or kV according to patient size and/or use of iterative reconstruction technique.[facility]: Dose Right [facility]: CareDose [facility]: Dose Right [facility]: Teradose 4D [facility]: RichRelevance LIMITATIONS: None Findings: CTA: No evidence of aortic aneurysm, dissection, or occlusion. No evidence of pulmonary embolus. No right ventricular strain. Patent major vessels of the thorax, abdomen and pelvis including the subclavian, celiac, mesenteric, renal , and iliac arteries. No hemorrhage/hematoma. Vascular system appears otherwise unremarkable. Old granulomatous disease. Small linear atelectasis or scar of the lingula. Minimal streaky opacity of the left lower lobe at lung base. Splenic index of 792. Hepatic steatosis. No ascites. No pneumoperitoneum. Normal appendix. No gross evidence of gallbladder inflammation, hepatobiliary obstruction, or portal vein defect. No bowel obstruction. No hydronephrosis or hydroureter. No renal/ureteral stone. Inferior neck, axillae, mediastinum, airway, heart, liver, gallbladder, pancreas, spleen, adrenals, renal system, gastrointestinal tract, pelvic organs, lymphatics, vasculature, and musculoskeleton appear otherwise unremarkable. Impression: 1. Small left basilar atelectasis or pneumonia. 2. No acute CTA findings. 3. Moderate splenomegaly. 4. Hepatic steatosis.
[2019-09-10] MEDS ORDERED: ACETAMINOPHEN 325 MG TABLET PO PRN (04:05)
[2019-09-10] MEDS ORDERED: NITROGLYCERIN 0.4 MG/TAB 25 TAB/BOTTLE SL PRN (04:05)
[2019-09-10 04:36] LABS: TRIGLYCERIDES 1394 mg/dL (<150)
[2019-09-10 04:38] LABS: DIRECT LDL 37 mg/dL (<100)
--- NOTE | 2019-09-10 05:22 | PDOC H&P ---
History of Present Illness Admission Date/PCP: 09/10/19 04:25 VENUS FISHMAN PA-C Patient complains of: Chest and back pain History of Present Illness: CHELLE DAWKINS is a 54 year old male with a past medical history of dyslipidemia, asymptomatic bradycardia and pneumonia 2 months ago presents with 12 hours of upper back and chest pain which was sharp in nature the back radiated to the front in the front radiated back with a 3 out of 5 intensity exacerbated with movement after rest somewhat associated with nausea without vomiting no palpitations shortness of breath or diaphoresis. He had minimal relief from use of [id number] analgesic patch and ibuprofen. In the emergency department he has had an unremarkable work-up including CTA, EKG and serial labs. He has persistent reproducible back pain about the upper thoracic spine and is referred to the hospitalist for admission. He denies recent change in medication regiment and is otherwise felt well flatly denying poor dentition, open ulcer or fever. Past Medical History Cardiac Medical History: Reports: Hyperlipidema, Hypertension Denies: Atrial Fibrillation, Congestive Heart Failure, Coronary Artery Disease, DVT, Myocardial Infarction, Pulmonary Embolism Pulmonary Medical History: Denies: Asthma, Chronic Obstructive Pulmonary Disease (COPD) Neurological Medical History: Denies: Seizures Endocrine Medical History: Denies: Diabetes Mellitus Type 1, Diabetes Mellitus Type 2, Hyperthyroidism, Hypothyroidism GI Medical History: Reports: Gastroesophageal Reflux Disease Denies: Cirrhosis, Crohn's Disease, Hepatitis, Ulcerative Colitis Musculoskeltal Medical History: Denies: Arthritis, Gout Skin Medical History: Denies: Eczema, Psoriasis Hematology: Denies: Anemia, Bleeding Tendencies Past Surgical History Past Surgical History: Reports: None Social History Information Source: Patient, [facility] Records Smoking Status: Never Smoker Frequency of Alcohol Use: None Hx Recreational Drug Use: No Drugs: None Hx Prescription Drug Abuse: No - Advance Directive Resuscitation Status: Full Code Family History Family History: CAD, Hypertension, Other - Sister with bradycardia requiring pacemaker. denies: DM, Malignancy Parental Family History Reviewed: Yes Children Family History Reviewed: Yes Sibling(s) Family History Reviewed.: Yes Medication/Allergy Home Medications: Albuterol Sulfate [Albuterol Sulfate Hfa] 2 puff IH Q6 PRN #1 [id number] 07/12/19 Cefpodoxime Proxetil [Vantin 200 Mg Tablet] 200 mg PO BID 10 Days #20 tablet 07/12/19 Doxycycline Monohydrate 100 mg PO BID 10 Days #20 capsule 07/12/19 Fluticasone Propion/Salmeterol [Advair HFA 115-21 mcg Inhaler] 2 puff IH BID #1 mdi 07/12/19 Allergies/Adverse Reactions: oxycodone HCl [From Percocet] Allergy (Severe, Verified 09/10/19 00:15) muscle spasms Review of Systems Constitutional: ABSENT: chills, fever(s), headache(s), weight gain, weight loss Eyes: ABSENT: visual disturbances Ears: ABSENT: hearing changes Cardiovascular: ABSENT: chest pain, dyspnea on exertion, edema, orthropnea, palpitations Respiratory: ABSENT: cough, hemoptysis Gastrointestinal: ABSENT: abdominal pain, constipation, diarrhea, hematemesis, hematochezia, nausea, vomiting Genitourinary: ABSENT: dysuria, hematuria Musculoskeletal: ABSENT: joint swelling Integumentary: ABSENT: rash, wounds Neurological: ABSENT: abnormal gait, abnormal speech, confusion, dizziness, focal weakness, syncope Psychiatric: ABSENT: anxiety, depression, homidical ideation, suicidal ideation Endocrine: ABSENT: cold intolerance, heat intolerance, polydipsia, polyuria Hematologic/Lymphatic: ABSENT: easy bleeding, easy bruising Physical Exam Vital Signs: Temp Pulse Resp BP Pulse Ox 97.3 F 65 20 133/88 H 98 09/10/19 00:13 09/09/19 23:47 09/10/19 04:01 09/10/19 04:01 09/10/19 04:01 Intake & Output 09/08/19 09/09/19 09/10/19 11:59 11:59 11:59 Intake Total 1000 Balance 1000 Weight 89.358 kg General appearance: PRESENT: no acute distress, well-developed, well-nourished Head exam: PRESENT: atraumatic, normocephalic Eye exam: PRESENT: conjunctiva pink, EOMI, PERRLA. ABSENT: scleral icterus Ear exam: PRESENT: normal external ear exam Mouth exam: PRESENT: moist, tongue midline Neck exam: ABSENT: carotid bruit, JVD, lymphadenopathy, thyromegaly Adult Head Front/Back Image: 1 - C7-T3 diffuse paraspinal tenderness Respiratory exam: PRESENT: clear to auscultation dee. ABSENT: rales, rhonchi, wheezes Cardiovascular exam: PRESENT: RRR. ABSENT: diastolic murmur, rubs, systolic murmur Pulses: PRESENT: normal dorsalis pedis pul Vascular exam: PRESENT: normal capillary refill GI/Abdominal exam: PRESENT: normal bowel sounds, soft. ABSENT: distended, g uarding, mass, organolmegaly, rebound, tenderness Rectal exam: PRESENT: deferred Extremities exam: PRESENT: full ROM. ABSENT: calf tenderness, clubbing, pedal edema Neurological exam: PRESENT: alert, awake, oriented to person, oriented to place, oriented to time, oriented to situation, CN II-XII grossly intact. ABSENT: mo tor sensory deficit Psychiatric exam: PRESENT: appropriate affect, normal mood. ABSENT: homicidal ideation, suicidal ideation Skin exam: PRESENT: dry, intact, warm. ABSENT: cyanosis, rash Results Laboratory Results: 09/10/19 00:07 09/10/19 00:30 09/10/19 09/10/19 09/10/19 00:07 00:07 00:07 WBC 4.6 RBC 5.00 Hgb 15.4 Hct 42.7 MCV 85 MCH 30.8 MCHC 36.0 RDW 14.3 H Plt Count 137 L Seg Neutrophils % 55.8 Sodium Cancelled Potassium Cancelled Chloride Cancelled Carbon Dioxide Cancelled Anion Gap Cancelled BUN Cancelled Creatinine Cancelled Est GFR ( Amer) Cancelled Est GFR (Non-Af Amer) Cancelled Glucose Cancelled Calcium Cancelled Total Bilirubin Cancelled AST Cancelled Alkaline Phosphatase Cancelled Total Protein Cancelled Albumin Cancelled Triglycerides Cholesterol LDL Cholesterol Direct HDL Cholesterol Lipase 112.7 TSH Blood Type Antibody Screen 09/10/19 09/10/19 09/10/19 00:07 00:07 00:30 WBC RBC Hgb Hct MCV MCH MCHC RDW Plt Count Seg Neutrophils % Sodium 135.6 L Potassium 4.3 Chloride 107 Carbon Dioxide 21 L Anion Gap 8 BUN 24 H Creatinine 1.05 Est GFR ( Amer) > 60 Est GFR (Non-Af Amer) Glucose 173 H Calcium 9.1 Total Bilirubin 0.4 AST 25 Alkaline Phosphatase 65 Total Protein 6.8 Albumin 4.0 Triglycerides 1394 H Cholesterol 241.00 H LDL Cholesterol Direct 37 HDL Cholesterol 30 L Lipase TSH 2.26 Blood Type Antibody Screen 09/10/19 01:08 WBC RBC Hgb Hct MCV MCH MCHC RDW Plt Count Seg Neutrophils % Sodium Potassium Chloride Carbon Dioxide Anion Gap BUN Creatinine Est GFR ( Amer) Est GFR (Non-Af Amer) Glucose Calcium Total Bilirubin AST Alkaline Phosphatase Total Protein Albumin Triglycerides Cholesterol LDL Cholesterol Direct HDL Cholesterol Lipase TSH Blood Type A POSITIVE Antibody Screen NEGATIVE 09/10/19 01:41 Troponin I < 0.012 Impressions: Chest X-Ray 09/10/19 00:31 IMPRESSION: No acute disease. Assessment and Plan - Diagnosis (1) Chest pain Qualifiers: Chest pain type: unspecified Qualified Code(s): R07.9 - Chest pain, unspecified Is this a current diagnosis for this admission?: Yes Plan: Atypical chest pain though the patient's pain is atypical there are multiple risk factors for coronary artery disease and subsequently will observe and ev aluation of acute coronary syndrome versus coronary artery disease with anginal equivalents. Cardiac monitoring blood pressure Q6 hours ,TSH, lipid profile, serial cardiac enzymes and treadmill cardiac stress test (2) Thoracic spine pain Is this a current diagnosis for this admission?: Yes Plan: No red flags to suggest epidural abscess, consider MRI if symptoms worsen or febrile, symptomatic management (3) Hyperlipidemia Qualifiers: Is this a current diagnosis for this admission?: Yes Plan: Statin ordered, follow-up lipid profile - Time Time Spent with patient: 25-34 minutes - Inpatient Certification Medical Necessity: Need Close Monitoring Due to Risk of Patient Decompensation
--- NOTE | 2019-09-10 07:44 | EKG REPORT ---
SEVERITY:- NORMAL ECG - SINUS RHYTHM : Confirmed by: Rosalva Jane MD 10-Sep-2019 07:43:37
--- NOTE | 2019-09-10 07:44 | EKG REPORT ---
SEVERITY:- NORMAL ECG - SINUS RHYTHM : Confirmed by: Rosalva Jane MD 10-Sep-2019 07:43:31
[2019-09-10] MEDS: KETOROLAC TROMETHAMINE INJ/PF 30 MG/1 ML SDV IV PRN ×3 (09:08→23:33)
[2019-09-10] MEDS: ASPIRIN 81 MG TABLET, ENT COATED PO SCH (09:10)
[2019-09-10] MEDS: LACTOBACILLUS ACIDOPHILUS 250 MG TAB PO SCH (09:10)
[2019-09-10] MEDS: FENOFIBRATE NANOCRYSTALLIZED 145 MG TABLET PO SCH (09:50)
--- NOTE | 2019-09-10 09:52 | PDOC PROGRESS REPORT ---
Subjective Progress Note for:: 09/10/19 Subjective:: Patient is having pain/discomfort. It is encompassing of the sternal area as well as tenderness over the paraspinal musculature. The patient does have discomfort radiating down the left arm. Reason For Visit: CHEST PAIN Physical Exam Vital Signs: Temp Pulse Resp BP Pulse Ox 97.6 F 56 L 18 106/84 98 09/10/19 05:39 09/10/19 07:00 09/10/19 05:39 09/10/19 05:39 09/10/19 05:39 Intake & Output 09/09/19 09/10/19 09/11/19 06:59 06:59 06:59 Intake Total 1000 Balance 1000 Weight 89.4 kg General appearance: PRESENT: cooperative, mild distress - Mild to moderate distress, well-developed Head exam: PRESENT: atraumatic, normocephalic Neck exam: PRESENT: full ROM. ABSENT: JVD, lymphadenopathy Respiratory exam: PRESENT: chest wall tenderness, clear to auscultation dee, symmetrical, unlabored. ABSENT: rales, rhonchi, tachypnea, wheezes Cardiovascular exam: PRESENT: RRR, +S1, +S2. ABSENT: diastolic murmur, irregular rhythm, systolic murmur, tachycardia GI/Abdominal exam: PRESENT: normal bowel sounds, soft. ABSENT: distended, guarding, tenderness Rectal exam: PRESENT: deferred Gentrourinary exam: ABSENT: indwelling catheter Extremities exam: PRESENT: tenderness - Over the paraspinal muscles upper back lower neck. Also tender with pressure over the sternal area and left chest. No tenderness over the large muscles in the thigh. Musculoskeletal exam: PRESENT: ambulatory, normal inspection. ABSENT: deformity Neurological exam: PRESENT: alert, awake, oriented to person, oriented to place, oriented to time, oriented to situation, CN II-XII grossly intact. ABSENT: altered Psychiatric exam: PRESENT: appropriate affect - Affect reflects his discomfort. ABSENT: agitated, anxious Focused psych exam: ABSENT: delusional, paranoid, restlessness Skin exam: PRESENT: dry, normal color, warm. ABSENT: petechiae, rash Results Laboratory Results: 09/10/19 00:07 09/10/19 00:30 09/10/19 09/10/19 09/10/19 00:07 00:07 00:07 WBC 4.6 RBC 5.00 Hgb 15.4 Hct 42.7 MCV 85 MCH 30.8 MCHC 36.0 RDW 14.3 H Plt Count 137 L Seg Neutrophils % 55.8 Sodium Cancelled Potassium Cancelled Chloride Cancelled Carbon Dioxide Cancelled Anion Gap Cancelled BUN Cancelled Creatinine Cancelled Est GFR ( Amer) Cancelled Est GFR (Non-Af Amer) Cancelled Glucose Cancelled Calcium Cancelled Total Bilirubin Cancelled AST Cancelled Alkaline Phosphatase Cancelled Total Protein Cancelled Albumin Cancelled Triglycerides Cholesterol LDL Cholesterol Direct HDL Cholesterol Lipase 112.7 TSH Blood Type Antibody Screen 09/10/19 09/10/19 09/10/19 00:07 00:07 00:30 WBC RBC Hgb Hct MCV MCH MCHC RDW Plt Count Seg Neutrophils % Sodium 135.6 L Potassium 4.3 Chloride 107 Carbon Dioxide 21 L Anion Gap 8 BUN 24 H Creatinine 1.05 Est GFR ( Amer) > 60 Est GFR (Non-Af Amer) Glucose 173 H Calcium 9.1 Total Bilirubin 0.4 AST 25 Alkaline Phosphatase 65 Total Protein 6.8 Albumin 4.0 Triglycerides 1394 H Cholesterol 241.00 H LDL Cholesterol Direct 37 HDL Cholesterol 30 L Lipase TSH 2.26 Blood Type Antibody Screen 09/10/19 01:08 WBC RBC Hgb Hct MCV MCH MCHC RDW Plt Count Seg Neutrophils % Sodium Potassium Chloride Carbon Dioxide Anion Gap BUN Creatinine Est GFR ( Amer) Est GFR (Non-Af Amer) Glucose Calcium Total Bilirubin AST Alkaline Phosphatase Total Protein Albumin Triglycerides Cholesterol LDL Cholesterol Direct HDL Cholesterol Lipase TSH Blood Type A POSITIVE Antibody Screen NEGATIVE 09/10/19 09/10/19 01:41 07:46 Troponin I < 0.012 < 0.012 Impressions: Chest X-Ray 09/10/19 00:31 IMPRESSION: No acute disease. Assessment and Plan - Diagnosis (1) Chest pain Qualifiers: Chest pain type: unspecified Qualified Code(s): R07.9 - Chest pain, unspecified Is this a current diagnosis for this admission?: Yes Plan: 09/10/2019 The pain is noncardiac but musculoskeletal. Troponins were negative. We will cancel the stress test. (2) Thoracic spine pain Is this a current diagnosis for this admission?: Yes Plan: 09/10/2019 MRI reveals cervical disc disease. Consider referral to pain management center for evaluation and therapy. (3) Hyperlipidemia Qualifiers: Hyperlipidemia type: mixed hyperlipidemia Is this a current diagnosis for this admission?: Yes Plan: 09/10/2019 The patient is on high-dose statin and fenofibrate therapy. Triglycerides are significantly better than last hospitalization. At that time they were 4000. They are now down to 1300. Consider adding Vascepa at 0.5 mg twice a day initially. Follow-up blood work in 6 to 8 weeks. - Time Time Spent with patient: Less than 15 minutes Medications reviewed and adjusted accordingly: Yes Anticipated discharge: Home Within: within 24 hours
--- NOTE | 2019-09-10 09:57 | PDOC CONSULTATION ---
Consultation Consult Date: 09/10/19 Attending physician:: CORI RAY Provider Consulted: EBONI COLEMAN Consult reason:: Atypical chest pain. History of Present Illness Admission Date/PCP: 09/10/19 04:25 VENUS FISHMAN PA-C History of Present Illness: CHELLE DAWKINS is a 54 year old male with history of hyperlipidemia in the form of severe hypertriglyceridemia, lifelong non-smoker and no family history of premature coronary artery disease who was admitted on 09/09/2019 with atypical chest pain. The patient began with chest pain more than 12 hours ago which actually began in the upper aspect of his back right at the base of the neck between the shoulder blades. It radiates to the substernal area. The pain in the back feels sharp and the one in the chest feels like a pressure. Both pains have been constantly present since yesterday (more than 12 hours) with worsening of the back pain when moving in bed. The pain in the chest is worse with deep b reathing. He denies associated palpitations, shortness of breath, PND, lower extremity edema, palpitations, diaphoresis, syncope and presyncope. He has been administered sublingual nitroglycerin without any relief. 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 His EKG this morning demonstrates normal sinus rhythm without ischemic changes. Physical exam at 09/10/2019: GENERAL: Pleasant and conversational. Oriented x3 with normal mood. Not in acute distress. Well groomed and well developed. HEENT: Normocephalic, atraumatic. Pupils equal. Sclerae anicteric. Oropharynx moist. NECK: No JVD. No carotid bruits. LUNGS: Clear to auscultation bilaterally. Normal respiratory effort without the use of accessory muscles or intercostal retractions. CARDIOVASCULAR: Regular rate and rhythm, normal S1 and S2 without murmurs, rubs, or gallops. PMI not displaced. ABDOMEN: No masses or tenderness to palpation. No bruit. No splenomegaly or hepatomegaly. No abdominal aorta bruit noted. EXTREMITIES: No edema, no cyanosis, no clubbing. +2 pulses femoral and pedal pulses bilaterally. SKIN: No lesions or rashes. MUSCULOSKELETAL: Tenderness to palpation over the left parasternal area proximal to the left breast reproducing his index symptoms. NEUROLOGIC: Nonfocal. No gross sensory or motor deficits bilateral upper or lower extremities. Past Medical History Cardiac Medical History: Reports: Hyperlipidema, Hypertension Denies: Atrial Fibrillation, Congestive Heart Failure, Coronary Artery Disease, DVT, Myocardial Infarction, Pulmonary Embolism Pulmonary Medical History: Denies: Asthma, Chronic Obstructive Pulmonary Disease (COPD) Neurological Medical History: Denies: Seizures Endocrine Medical History: Denies: Diabetes Mellitus Type 1, Diabetes Mellitus Type 2, Hyperthyroidism, Hypothyroidism GI Medical History: Reports: Gastroesophageal Reflux Disease Denies: Cirrhosis, Crohn's Disease, Hepatitis, Ulcerative Colitis Musculoskeltal Medical History: Denies: Arthritis, Gout Skin Medical History: Denies: Eczema, Psoriasis Psychiatric Medical History: Denies: Depression Hematology: Denies: Anemia, Bleeding Tendencies Past Surgical History Past Surgical History: Reports: None Social History Smoking Status: Never Smoker Electronic Cigarette use?: No Frequency of Alcohol Use: None Hx Recreational Drug Use: No Drugs: None Hx Prescription Drug Abuse: No - Advance Directive Resuscitation Status: Full Code Family History Family History: CAD, Hypertension, Other - Sister with bradycardia requiring pacemaker. denies: DM, Malignancy Parental Family History Reviewed: Yes Children Family History Reviewed: Yes Sibling(s) Family History Reviewed.: Yes Medication/Allergy Home Medications: Fenofibrate Nanocrystallized [Fenofibrate] 145 mg PO DAILY 09/10/19 L.acidoph,Paracasei, B.lactis [Probiotic] 1 cap PO DAILY 09/10/19 Allergies/Adverse Reactions: oxycodone HCl [From Percocet] Allergy (Severe, Verified 09/10/19 00:15) muscle spasms Physical Exam Vital Signs: Temp Pulse Resp BP Pulse Ox 97.6 F 56 L 18 106/84 98 09/10/19 05:39 09/10/19 07:00 09/10/19 05:39 09/10/19 05:39 09/10/19 05:39 Intake & Output 09/09/19 09/10/19 09/11/19 06:59 06:59 06:59 Intake Total 1000 Balance 1000 Weight 89.4 kg Results Laboratory Results: 09/10/19 00:07 09/10/19 00:30 09/10/19 09/10/19 09/10/19 00:07 00:07 00:07 WBC 4.6 RBC 5.00 Hgb 15.4 Hct 42.7 MCV 85 MCH 30.8 MCHC 36.0 RDW 14.3 H Plt Count 137 L Seg Neutrophils % 55.8 Sodium Cancelled Potassium Cancelled Chloride Cancelled Carbon Dioxide Cancelled Anion Gap Cancelled BUN Cancelled Creatinine Cancelled Est GFR ( Amer) Cancelled Est GFR (Non-Af Amer) Cancelled Glucose Cancelled Calcium Cancelled Total Bilirubin Cancelled AST Cancelled Alkaline Phosphatase Cancelled Total Protein Cancelled Albumin Cancelled Triglycerides Cholesterol LDL Cholesterol Direct HDL Cholesterol Lipase 112.7 TSH Blood Type Antibody Screen 09/10/19 09/10/19 09/10/19 00:07 00:07 00:30 WBC RBC Hgb Hct MCV MCH MCHC RDW Plt Count Seg Neutrophils % Sodium 135.6 L Potassium 4.3 Chloride 107 Carbon Dioxide 21 L Anion Gap 8 BUN 24 H Creatinine 1.05 Est GFR ( Amer) > 60 Est GFR (Non-Af Amer) Glucose 173 H Calcium 9.1 Total Bilirubin 0.4 AST 25 Alkaline Phosphatase 65 Total Protein 6.8 Albumin 4.0 Triglycerides 1394 H Cholesterol 241.00 H LDL Cholesterol Direct 37 HDL Cholesterol 30 L Lipase TSH 2.26 Blood Type Antibody Screen 09/10/19 01:08 WBC RBC Hgb Hct MCV MCH MCHC RDW Plt Count Seg Neutrophils % Sodium Potassium Chloride Carbon Dioxide Anion Gap BUN Creatinine Est GFR ( Amer) Est GFR (Non-Af Amer) Glucose Calcium Total Bilirubin AST Alkaline Phosphatase Total Protein Albumin Triglycerides Cholesterol LDL Cholesterol Direct HDL Cholesterol Lipase TSH Blood Type A POSITIVE Antibody Screen NEGATIVE 09/10/19 09/10/19 01:41 07:46 Troponin I < 0.012 < 0.012 Impressions: Chest X-Ray 09/10/19 00:31 IMPRESSION: No acute disease. 09/10/19 00:07 09/10/19 00:30 MCV 85 fl (80-97) 09/10/19 00:07 MCH 30.8 pg (27.0-33.4) 09/10/19 00:07 MCHC 36.0 g/dL (32.0-36.0) 09/10/19 00:07 RDW 14.3 % (11.5-14.0) H 09/10/19 00:07 Seg Neutrophils % 55.8 % (42-78) 09/10/19 00:07 Chloride 107 mmol/L (98-107) 09/10/19 00:30 Carbon Dioxide 21 mmol/L (22-30) L 09/10/19 00:30 Anion Gap 8 (5-19) 09/10/19 00:30 Est GFR ( Amer) > 60 (>60) 09/10/19 00:30 Est GFR (Non-Af Amer) Cancelled 09/10/19 00:07 Glucose 173 mg/dL (75-110) H 09/10/19 00:30 Calcium 9.1 mg/dL (8.4-10.2) 09/10/19 00:30 Total Bilirubin 0.4 mg/dL (0.2-1.3) 09/10/19 00:30 AST 25 U/L (17-59) 09/10/19 00:30 Alkaline Phosphatase 65 U/L (38-126) 09/10/19 00:30 Total Protein 6.8 g/dL (6.3-8.2) 09/10/19 00:30 Albumin 4.0 g/dL (3.5-5.0) 09/10/19 00:30 Triglycerides 1394 mg/dL (<150) H 09/10/19 00:07 Cholesterol 241.00 mg/dL (0-200) H 09/10/19 00:07 LDL Cholesterol Direct 37 mg/dL (<100) 09/10/19 00:07 HDL Cholesterol 30 mg/dL (>40) L 09/10/19 00:07 Lipase 112.7 U/L (23-300) 09/10/19 00:07 TSH 2.26 uIU/mL (0.47-4.68) 09/10/19 00:07 Blood Type A POSITIVE 09/10/19 01:08 Antibody Screen NEGATIVE 09/10/19 01:08 09/10/19 09/10/19 01:41 07:46 Troponin I < 0.012 < 0.012 Current Medication List Generic Name Dose Route Start Last Admin Trade Name Freq PRN Reason Stop Dose Admin Acetaminophen 650 mg 09/10/19 04:05 09/10/19 08:21 Tylenol 325 Mg Tablet PO 10/10/19 04:04 650 mg Q4HP PRN Administration FOR HEADACHE Aspirin 81 mg 09/10/19 10:00 09/10/19 09:10 Ecotrin 81 Mg Ec Tablet PO 10/10/19 09:59 81 mg DAILY JARRET Administration Atorvastatin Calcium 80 mg 09/10/19 22:00 Lipitor 80 Mg Tablet PO 10/10/19 21:59 QHS JARRET Fenofibrate 145 mg 09/10/19 10:00 09/10/19 09:50 Tricor 145 Mg Tablet PO 10/10/19 09:59 145 mg DAILY JARRET Administration Ketorolac Tromethamine 30 mg 09/10/19 08:56 09/10/19 09:08 Toradol Inj/Pf 30 Mg/1 Ml Sdv IV 09/15/19 08:55 30 mg Q6HP PRN Administration FOR PAIN Lactobacillus Acidophilus 250 mg 09/10/19 10:00 09/10/19 09:10 Bacid 250 Mg Tablet PO 10/10/19 09:59 250 mg DAILY JARRET Administration Nitroglycerin 1 tab 09/10/19 04:05 09/10/19 08:30 Nitrostat 0.4 Mg (1/150 Gr) Tabs 25/Bottle SL 1 tab Q5MP PRN Administration FOR CHEST PAIN Sodium Chloride 2.5 ml 09/10/19 06:00 09/10/19 05:45 Saline Flush 2.5 Ml Monoject Prefil Syrin IV 10/10/19 05:59 Not Given Q8 JARRET Discontinued Medications Generic Name Dose Route Start Last Admin Trade Name Freq PRN Reason Stop Dose Admin Aspirin 324 mg 09/09/19 23:41 09/10/19 00:12 Aspirin 81 Mg Chewable Tablet PO 09/09/19 23:42 324 mg NOW ONE Administration Fentanyl Citrate 75 mcg 09/10/19 00:28 09/10/19 00:42 Sublimaze Inj/Pf 100 Mcg/2 Ml Ampule IV 09/10/19 00:29 75 mcg NOW ONE Administration Fentanyl Citrate 50 mcg 09/10/19 04:05 09/10/19 04:12 Sublimaze Inj/Pf 100 Mcg/2 Ml Ampule IV 09/10/19 04:06 50 mcg NOW ONE Administration Sodium Chloride 1,000 mls @ 0 mls/hr 09/10/19 00:31 09/10/19 02:15 Nacl 0.9% 1000 Ml Iv Soln IV 09/10/19 00:32 Infused BOLUS ONE Infusion Wide Open Ondansetron HCl 4 mg 09/10/19 00:31 09/10/19 00:39 Zofran Inj/Pf 4 Mg/2 Ml Sdv IV 09/10/19 00:32 4 mg NOW ONE Administration Assessment & Plan - Diagnosis (1) Chest pain Qualifiers: Chest pain type: unspecified Qualified Code(s): R07.9 - Chest pain, unspecified Plan: 54-year-old male with cardiac risk factors of gender, age and hyperlipidemia who was admitted with more than 12 hours of constant chest pain that is reproducible with palpation of the chest wall in the setting of normal troponins x2 and normal EKG. His pain is musculoskeletal and does not require further ischemia work-up as an inpatient. Recommendations: -Primary prevention measures. -Anti-inflammatories. -Follow-up with primary care provider. (2) Hypertriglyceridemia Plan: His triglycerides are elevated however I suspect that the management was done in a nonfasting state. He was already begun on 80 mg of Lipitor along with fenofibrate. Of note, the patient needs to be followed closely by his primary care provider due to the risk of hepatic compromise and/or muscular complicatio ns given the use of Lipitor concomitantly with fenofibrates. Recommendations: -Follow-up with primary care provider closely.
[2019-09-10] MEDS ORDERED: (PENDING PHARMACY ID) (L.Acidoph,Paracasei, B.Lactis [Probiotic] 1 CAP) PO SCH (10:00)
[2019-09-10 10:26] LABS: CREATINE KINASE 108 U/L (55-170)
[2019-09-10 10:30] LABS: C-REACTIVE PROTEIN < 5.0 mg/L (<10.0)
--- NOTE | 2019-09-10 15:47 | RADIOLOGY REPORT (SQ) ---
EXAM DESCRIPTION: MRI CERVICAL SPINE COMBO IMAGES COMPLETED DATE/TIME: 09/10/2019 1:06 pm REASON FOR STUDY: Radicular pain left arm COMPARISON: None. TECHNIQUE: Sagittal and Axial imaging includes T1, T2, STIR and gradient echo sequences. T1 post anyi olinium sequences. CONTRAST TYPE AND DOSE: 20 mL Dotarem. RENAL FUNCTION: Not indicated. ACR Type II contrast agent associated with few, if any, unconfounded cases of NSF LIMITATIONS: None. FINDINGS: ALIGNMENT: Normal. VERTEBRAE: Intact. BONE MARROW: Normal. No marrow replacement or reactive changes. DISCS: Some loss of normal water signal consistent with desiccation. No significant disc space narro wing. HARDWARE: None in the spine. CORD AND BASE OF BRAIN: Normal in size and signal intensity. SOFT TISSUES: No soft tissue masses. C1-C2: No significant spinal stenosis. C2-C3: No significant spinal stenosis or exit foraminal stenosis. C3-C4: Broad-based annular disc bulging. Osteophytic spurring posterior on laterally on the right an d left. This results in bilateral foraminal stenosis. C4-C5: Annular bulging. No central stenosis or nerve root impingement. C5-C6: No significant spinal stenosis or exit foraminal stenosis. C6-C7: No significant spinal stenosis or exit foraminal stenosis. C7-T1: No significant spinal stenosis or exit foraminal stenosis. UPPER THORACIC: Incompletely imaged. No significant spinal stenosis or exit foraminal stenosis. ENHANCEMENT: No abnormal enhancement. OTHER: No other significant finding. IMPRESSION: Mild disc degenerative disease. Changes are most prominent at C3-4. This a broad-based disc/ osteophyte complex with osteophytic spurring resulting in bilateral foraminal stenosis. No si gnificant central stenosis. COMMENT: None. TECHNICAL DOCUMENTATION: JOB ID: [id number] 2010 [employer]- All Rights Reserved Reading location - IP/workstation name: [email or web address]
[2019-09-10] MEDS ORDERED: ATORVASTATIN CALCIUM 80 MG TABLET PO SCH (22:00)
--- NOTE | 2019-09-10 22:27 | EKG REPORT ---
SEVERITY:- NORMAL ECG - SINUS RHYTHM : Confirmed by: Rosalva Jane MD 10-Sep-2019 22:27:02
[2019-09-11] MEDS: KETOROLAC TROMETHAMINE INJ/PF 30 MG/1 ML SDV IV PRN (05:54)
[2019-09-11] MEDS: FENOFIBRATE NANOCRYSTALLIZED 145 MG TABLET PO SCH (09:56)
[2019-09-11] MEDS: LACTOBACILLUS ACIDOPHILUS 250 MG TAB PO SCH (09:56)
[2019-09-11] MEDS: ASPIRIN 81 MG TABLET, ENT COATED PO SCH (09:56)
[2019-09-11 12:09] VITALS: BP 149/89
--- NOTE | 2019-09-11 17:38 | PDOC DISCHARGE SUMMARY ---
Impression - Admit/DC Date/PCP Admission Date/Primary Care Provider: 09/10/19 04:25 VENUS FISHMAN PA-C Discharge Date: 09/11/19 - Discharge Diagnosis (1) Chest pain Is this a current diagnosis for this admission?: Yes (2) Essential hypertension Is this a current diagnosis for this admission?: Yes (3) Hypertriglyceridemia Is this a current diagnosis for this admission?: Yes - Additional Information Resuscitation Status: Full Code Discharge Diet: Cardiac Discharge Activity: Activity As Tolerated Referrals: JOSEMANUEL HARTMAN MD [ACTIVE STAFF] - (2-4 weeks) VENUS FISHMAN PA-C [Primary Care Provider] - Follow up as needed (LEFT MESSAGE WITH THE PCP FOR FOLLOW UP APPT) Home Medications: Fenofibrate Nanocrystallized [Fenofibrate] 145 mg PO DAILY 09/10/19 L.acidoph,Paracdarii, B.lactis [Probiotic] 1 cap PO DAILY 09/10/19 History of Present Illiness History of Present Illness: CHELLE DAWKINS is a 54 year old male with a past medical history of dyslipidemia, asymptomatic bradycardia and pneumonia 2 months ago presents with 12 hours of upper back and chest pain which was sharp in nature the back radiated to the front in the front radiated back with a 3 out of 5 intensity exacerbated with movement after rest somewhat associated with nausea without vomiting no palpitations shortness of breath or diaphoresis. He had minimal relief from use of [id number] analgesic patch and ibuprofen. In the emergency department he has had an unremarkable work-up including CTA, EKG and serial labs. He has persistent reproducible back pain about the upper thoracic spine and is referred to the hospitalist for admission. He denies recent change in medication regiment and is otherwise felt well flatly denying poor dentition, open ulcer or fever. Hospital Course Hospital Course: He ruled out for ND. It was felt like his chest pain was noncardiac. He had some cervical disc disease on imaging it was felt like that was a source of a lot of his pain as he was having a lot of discomfort near his left shoulder. His blood pressures were a bit elevated but he said he would like to try to get his blood pressure under control with diet and exercise. He said he has made some changes ever since his triglycerides were found to be slightly elevated, and he will continue his TriCor he was already on at home. A referral was made to pain management for his cervical disease. His labs and examination were reassuring he was discharged in stable condition. Physical Exam Vital Signs: Temp Pulse Resp BP Pulse Ox 97.9 F 56 L 16 149/89 H 97 09/11/19 12:12 09/11/19 12:12 09/11/19 12:12 09/11/19 11:27 09/11/19 12:12 Intake & Output 09/10/19 09/11/19 09/12/19 06:59 06:59 06:59 Intake Total 1000 100 Balance 1000 100 Weight 89.4 kg 91.3 kg General appearance: PRESENT: no acute distress, cooperative, obese Respiratory exam: PRESENT: clear to auscultation dee, symmetrical, unlabored. ABSENT: accessory muscle use, chest wall tenderness, crackles, prolonged expiratory phas, rhonchi, tachypnea, wheezes Cardiovascular exam: PRESENT: RRR, +S1, +S2 Pulses: PRESENT: normal carotid pulses Vascular exam: PRESENT: normal capillary refill GI/Abdominal exam: PRESENT: normal bowel sounds, soft. ABSENT: distended, guarding, rebound, tenderness Extremities exam: ABSENT: clubbing, pedal edema Musculoskeletal exam: PRESENT: normal inspection. ABSENT: deformity Neurological exam: PRESENT: alert, awake, oriented to person, oriented to place, oriented to time, oriented to situation Psychiatric exam: PRESENT: appropriate affect, normal mood Skin exam: PRESENT: dry, warm Results Laboratory Results: WBC 4.6 10^3/uL (4.0-10.5) 09/10/19 00:07 RBC 5.00 10^6/uL (4.35-5.55) 09/10/19 00:07 Hgb 15.4 g/dL (13.5-17.0) 09/10/19 00:07 Hct 42.7 % (37.9-51.0) 09/10/19 00:07 MCV 85 fl (80-97) 09/10/19 00:07 MCH 30.8 pg (27.0-33.4) 09/10/19 00:07 MCHC 36.0 g/dL (32.0-36.0) 09/10/19 00:07 RDW 14.3 % (11.5-14.0) H 09/10/19 00:07 Plt Count 137 10^3/uL (150-450) L 09/10/19 00:07 Lymph % (Auto) 34.1 % (13-45) 09/10/19 00:07 [place] % (Auto) 7.9 % (3-13) 09/10/19 00:07 Eos % (Auto) 1.3 % (0-6) 09/10/19 00:07 Baso % (Auto) 0.9 % (0-2) 09/10/19 00:07 Absolute Neuts (auto) 2.5 10^3/uL (1.7-8.2) 09/10/19 00:07 Absolute Lymphs (auto) 1.6 10^3/uL (0.5-4.7) 09/10/19 00:07 Absolute Monos (auto) 0.4 10^3/uL (0.1-1.4) 09/10/19 00:07 Absolute Eos (auto) 0.1 10^3/uL (0.0-0.6) 09/10/19 00:07 Absolute Basos (auto) 0.0 10^3/uL (0.0-0.2) 09/10/19 00:07 Seg Neutrophils % 55.8 % (42-78) 09/10/19 00:07 Sodium 135.6 mmol/L (137-145) L 09/10/19 00:30 Potassium 4.3 mmol/L (3.6-5.0) 09/10/19 00:30 Chloride 107 mmol/L (98-107) 09/10/19 00:30 Carbon Dioxide 21 mmol/L (22-30) L 09/10/19 00:30 Anion Gap 8 (5-19) 09/10/19 00:30 BUN 24 mg/dL (7-20) H 09/10/19 00:30 Creatinine 1.05 mg/dL (0.52-1.25) 09/10/19 00:30 Est GFR ( Amer) > 60 (>60) 09/10/19 00:30 Est GFR (Non-Af Amer) Cancelled 09/10/19 00:07 Est GFR (MDRD) Non-Af > 60 (>60) 09/10/19 00:30 Glucose 173 mg/dL (75-110) H 09/10/19 00:30 Calcium 9.1 mg/dL (8.4-10.2) 09/10/19 00:30 Total Bilirubin 0.4 mg/dL (0.2-1.3) 09/10/19 00:30 Direct Bilirubin 0.0 mg/dL (0.0-0.4) 09/10/19 00:30 Neonat Total Bilirubin Not Reportable 09/10/19 00:30 Neonat Direct Bilirubin Not Reportable 09/10/19 00:30 Neonat Indirect Bili Not Reportable 09/10/19 00:30 AST 25 U/L (17-59) 09/10/19 00:30 ALT 34 U/L (<50) 09/10/19 00:30 Alkaline Phosphatase 65 U/L (38-126) 09/10/19 00:30 Creatine Kinase 108 U/L (55-170) 09/10/19 00:07 Troponin I < 0.012 ng/mL 09/10/19 13:37 C-Reactive Protein < 5.0 mg/L (<10.0) 09/10/19 00:07 Total Protein 6.8 g/dL (6.3-8.2) 09/10/19 00:30 Albumin 4.0 g/dL (3.5-5.0) 09/10/19 00:30 Triglycerides 1394 mg/dL (<150) H 09/10/19 00:07 Cholesterol 241.00 mg/dL (0-200) H 09/10/19 00:07 LDL Cholesterol Direct 37 mg/dL (<100) 09/10/19 00:07 VLDL Cholesterol, Calc UNABLE TO CALCULATE 09/10/19 00:07 HDL Cholesterol 30 mg/dL (>40) L 09/10/19 00:07 Lipase 112.7 U/L (23-300) 09/10/19 00:07 EGFR Cancelled 09/10/19 00:07 TSH 2.26 uIU/mL (0.47-4.68) 09/10/19 00:07 Blood Type A POSITIVE 09/10/19 01:08 Antibody Screen NEGATIVE 09/10/19 01:08 09/10/19 09/10/19 09/10/19 01:41 07:46 13:37 Troponin I < 0.012 < 0.012 < 0.012 Impressions: Cervical Spine MRI 09/10/19 00:00 IMPRESSION: Mild disc degenerative disease. Changes are most prominent at C3- 4. This a broad-based disc/ osteophyte complex with osteophytic spurring resulting in bilateral foraminal stenosis. No significant central stenosis. Chest X-Ray 09/10/19 00:31 IMPRESSION: No acute disease. Plan Time Spent: Greater than 30 Minutes Stroke Is this a Stroke Patient?: No Acute Heart Failure - Is this a Heart Failure Patient?: No
== END 2019-09-11 13:10 | disposition home or self-care (01) ==
LOC: ER 23:38 → EH 09-10 04:25 → 4N 09-10 05:24
PROVIDERS: ADMIT Internal Medicine; ATTEND Hospitalist
DX: R07.89 Other chest pain (principal); I10 Essential (primary) hypertension; E78.1 Pure hyperglyceridemia; M54.6 Pain in thoracic spine; R11.0 Nausea; M50.31 Other cervical disc degeneration, high cervical region; M48.02 Spinal stenosis, cervical region; M79.602 Pain in left arm; R00.1 Bradycardia, unspecified; E66.9 Obesity, unspecified; Z87.01 Personal history of pneumonia (recurrent); Z82.49 Family history of ischemic heart disease and other diseases of the circulatory system; Z87.19 Personal history of other diseases of the digestive system
CPT/HCPCS: 93005 ×3; 96376; 99285; 96361; 96374; 96375; 86900; 86901; 36415; 86850; 82550; 83690; 84443; 85025; 86140; 80053; 84484; 80061; 72156; 71045; 71275; 74174; 93010 ×2; G0378 ×3; A9576; J3010; J1885 ×2; J2405; J3490 ×2; J7030